=== PATIENT | male | born 1990 | race Caucasian/White ===

== ENCOUNTER 2018-11-20 14:19 | Emergency (ER) | payer OTHER ==
[2018-11-20 15:23] LABS: Amphetamine Screen,Urine Not Detected (NotDetected); Barbiturate Screen,Urine Not Detected (NotDetected); Benzodiazepines Screen,Urine Not Detected (NotDetected); Cocaine Screen,Urine Not Detected (NotDetected); Methadone Screen, Urine Not Detected (NotDetected); Opiate Screen,Urine Not Detected (NotDetected); Oxycodone Screen, Urine Not Detected (NotDetected); Phencyclidine Screen,Urine Not Detected (NotDetected); Tricyclic Antidepressant,Urine Not Detected (NotDetected); Urn Cannabinoid Scrn Detected (NotDetected)
--- NOTE | 2018-11-20 16:46 | ED ---
Psych HPI - General Chief Complaint: Psychiatric Symptoms Stated Complaint: Mental health Time Seen by Provider: 11/20/18 15:01 Source: patient, RN notes reviewed Mode of arrival: ambulatory - History of Present Illness Initial Comments: This is a 20-year-old male history depression who is sent over here from his therapist office because he is suicidal. He apparently has access to home he's been feeling depressed for a long time he states he apparently told his sister because he would kill himself. He denies any drugs or alcohol at this time he has no particular trigger for this event today. MD Complaint: suicidal ideation, feels depressed - Related Data Home Medications Medication Instructions Recorded Confirmed FLUoxetine HCL [PROzac] 80 mg PO DAILY 11/20/18 11/20/18 Allergies Allergy/AdvReac Type Severity Reaction Status Date / Time No Known Allergies Allergy Verified 11/20/18 14:45 Review of Systems ROS Statement: Those systems with pertinent positive or pertinent negative responses have been documented in the HPI. ROS Other: All systems not noted in ROS Statement are negative. Past Medical History Past Medical History: No Reported History History of Any Multi-Drug Resistant Organisms: None Reported Past Surgical History: No Surgical Hx Reported Past Psychological History: ADD/ADHD, Anxiety, Bipolar, Depression, PTSD Smoking Status: Current every day smoker Past Alcohol Use History: Daily Past Drug Use History: Cocaine, Heroin, Marijuana General Exam - General Exam Comments Initial Comments: Is a well-developed well-nourished awake alert oriented times 3 male Limitations: no limitations General appearance: alert, anxious Head exam: Present: atraumatic, normocephalic, normal inspection Eye exam: Present: normal appearance, PERRL, EOMI. Absent: scleral icterus, conjunctival injection, periorbital swelling ENT exam: Present: normal exam, mucous membranes moist Neck exam: Present: normal inspection. Absent: tenderness, meningismus, lymphadenopathy Respiratory exam: Present: normal lung sounds bilaterally. Absent: respiratory distress, wheezes, rales, rhonchi, stridor Cardiovascular Exam: Present: regular rate, normal rhythm, normal heart sounds. Absent: systolic murmur, diastolic murmur, rubs, gallop, clicks GI/Abdominal exam: Present: soft, normal bowel sounds. Absent: distended, tenderness, guarding, rebound, rigid Extremities exam: Present: normal inspection, full ROM, normal capillary refill. Absent: tenderness, pedal edema, joint swelling, calf tenderness Back exam: Present: normal inspection Neurological exam: Present: alert, oriented X3, CN II-XII intact Psychiatric exam: Present: depressed, manic, suicidal ideation, other (The patient is demonstrating histrionic behavior) Skin exam: Present: warm, dry, intact, normal color. Absent: rash Course Vital Signs 11/20/18 14:22 Temperature 97.5 F L Pulse Rate 80 Respiratory 20 Rate Blood Pressure 135/80 O2 Sat by Pulse 99 Oximetry Medical Decision Making - Medical Decision Making Patient was evaluated by psychiatric service he is not a risk currently himself he will be discharged outpatient referral - Lab Data Lab Results 11/20/18 Range/Units 15:00 Urine Opiates Screen Not Detected (NotDetected) Ur Oxycodone Screen Not Detected (NotDetected) Urine Methadone Screen Not Detected (NotDetected) Ur Propoxyphene Screen Not Detected (NotDetected) Ur Barbiturates Screen Not Detected (NotDetected) U Tricyclic Antidepress Not Detected (NotDetected) Ur Phencyclidine Scrn Not Detected (NotDetected) Ur Amphetamines Screen Not Detected (NotDetected) U Methamphetamines Scrn Not Detected (NotDetected) U Benzodiazepines Scrn Not Detected (NotDetected) Urine Cocaine Screen Not Detected (NotDetected) U Marijuana (THC) Screen Detected H (NotDetected) Disposition Clinical Impression: Depression, Adjustment reaction Disposition: HOME SELF-CARE Condition: Good Instructions: Mood Disorders (ED) Is patient prescribed a controlled substance at d/c from ED?: No Referrals: None,Stated [Primary Care Provider] - 1-2 days
[2018-11-20] MEDS ORDERED: NICOTINE 21MG/24HR PATCH TRANSDERM STA (18:10)
[2018-11-20 21:00] VITALS: BP 132/86; PULSE 98; RESP 18; TEMP 97.9
== END 2018-11-20 21:01 | disposition home or self-care (01) ==
LOC: EC 14:19
DX: F32.9 Major depressive disorder, single episode, unspecified (principal); F43.20 Adjustment disorder, unspecified; F41.9 Anxiety disorder, unspecified; F17.200 Nicotine dependence, unspecified, uncomplicated; Z79.899 Other long term (current) drug therapy
CPT/HCPCS: 80306; 99284; S4990

== ENCOUNTER 2019-06-11 12:29 | Inpatient (IN) | payer MEDICAID, OTHER ==
[2019-06-11 13:36] LABS: Amphetamine Screen,Urine Not Detected (NotDetected); Barbiturate Screen,Urine Not Detected (NotDetected); Benzodiazepines Screen,Urine Not Detected (NotDetected); Cocaine Screen,Urine Not Detected (NotDetected); Methadone Screen, Urine Not Detected (NotDetected); Opiate Screen,Urine Not Detected (NotDetected); Oxycodone Screen, Urine Not Detected (NotDetected); Phencyclidine Screen,Urine Not Detected (NotDetected); Tricyclic Antidepressant,Urine Not Detected (NotDetected); Urn Cannabinoid Scrn Detected (NotDetected)
--- NOTE | 2019-06-11 14:16 | ED ---
Psych HPI - General Chief Complaint: Psychiatric Symptoms Stated Complaint: EPS eval Time Seen by Provider: 06/11/19 12:56 Source: patient, RN notes reviewed Mode of arrival: ambulatory Limitations: no limitations - History of Present Illness Initial Comments: 29-year-old male presents emergency Department for psychiatric evaluation. Patient states that he is severely depressed and suicidal no exact plan this time he has had multiple attempts in the past for suicide. Patient states he is see a therapist but moved under joint missed multiple appointments and he states he was not able to get any more appointment. Patient states he does use alcohol occasionally does use marijuana but denies any other drug use. Patient denies any physical complaints patient states that he feels that he needs to be admitted. - Related Data Home Medications Medication Instructions Recorded Confirmed No Known Home Medications 06/11/19 06/11/19 Allergies Allergy/AdvReac Type Severity Reaction Status Date / Time No Known Allergies Allergy Verified 06/11/19 13:18 Review of Systems ROS Statement: Those systems with pertinent positive or pertinent negative responses have been documented in the HPI. ROS Other: All systems not noted in ROS Statement are negative. Past Medical History Past Medical History: No Reported History History of Any Multi-Drug Resistant Organisms: None Reported Past Surgical History: No Surgical Hx Reported Past Psychological History: ADD/ADHD, Anxiety, Bipolar, Depression, PTSD Smoking Status: Current every day smoker Past Alcohol Use History: Occasional Past Drug Use History: None Reported, Cocaine, Heroin, Marijuana General Exam Limitations: no limitations General appearance: alert, in no apparent distress Head exam: Present: atraumatic, normocephalic, normal inspection Eye exam: Present: normal appearance, PERRL, EOMI. Absent: scleral icterus, conjunctival injection, periorbital swelling ENT exam: Present: normal exam, normal oropharynx, mucous membranes moist, TM's normal bilaterally Neck exam: Present: normal inspection, full ROM. Absent: tenderness, meningismus, lymphadenopathy Respiratory exam: Present: normal lung sounds bilaterally. Absent: respiratory distress, wheezes, rales, rhonchi, stridor Cardiovascular Exam: Present: regular rate, normal rhythm, normal heart sounds. Absent: systolic murmur, diastolic murmur, rubs, gallop, clicks GI/Abdominal exam: Present: soft, normal bowel sounds. Absent: distended, tenderness, guarding, rebound, rigid Psychiatric exam: Present: depressed Skin exam: Present: warm, dry, intact, normal color. Absent: rash Course Vital Signs 06/11/19 12:53 Temperature 98.3 F Pulse Rate 90 Respiratory 18 Rate Blood Pressure 130/80 O2 Sat by Pulse 96 Oximetry Medical Decision Making - Medical Decision Making Patient will be admitted for psychiatric evaluation. - Lab Data Lab Results 06/11/19 Range/Units 13:10 Urine Opiates Screen Not Detected (NotDetected) Ur Oxycodone Screen Not Detected (NotDetected) Urine Methadone Screen Not Detected (NotDetected) Ur Propoxyphene Screen Not Detected (NotDetected) Ur Barbiturates Screen Not Detected (NotDetected) U Tricyclic Antidepress Not Detected (NotDetected) Ur Phencyclidine Scrn Not Detected (NotDetected) Ur Amphetamines Screen Not Detected (NotDetected) U Methamphetamines Scrn Not Detected (NotDetected) U Benzodiazepines Scrn Not Detected (NotDetected) Urine Cocaine Screen Not Detected (NotDetected) U Marijuana (THC) Screen Detected H (NotDetected) Disposition Clinical Impression: Depression, Suicidal ideation Disposition: TRANSFER TO PSYCH HOSP/UNIT Referrals: None,Stated [Primary Care Provider] - 1-2 days
[2019-06-11] MEDS ORDERED: MAGNESIUM HYDROXIDE 2,400 MG/10 ML CUP PO PRN (16:35)
[2019-06-11] MEDS ORDERED: MAG HYDROX/AL HYDROX/SIMETH 30 ML CUP PO PRN (16:35)
[2019-06-11] MEDS ORDERED: ACETAMINOPHEN TAB 325 MG TAB PO PRN (16:35)
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
[2019-06-11] MEDS: NICOTINE 21MG/24HR PATCH TRANSDERM SCH (17:45)
[2019-06-11 18:08] VITALS: BMI 23.6
[2019-06-11] MEDS: LORazepam 1 MG TAB PO SCH (20:50)
[2019-06-12 07:40] LABS: Basophils % (A) 0 %; Eosinophils # (A) 0.4 k/uL (0-0.7); Eosinophils % (A) 5 %; HCT 48.4 % (39.0-53.0); HGB 15.3 gm/dL (13.0-17.5); Lymphocytes # (A) 2.3 k/uL (1.0-4.8); Lymphocytes % (A) 33 %; MCH 29.9 pg (25.0-35.0); MCHC 31.6 g/dL (31.0-37.0); MCV 94.6 fL (80.0-100.0); Mean Platelet Volume 7.8; Monocytes # (A) 0.5 k/uL (0-1.0); Monocytes % (A) 7 %; Neutrophils # (A) 3.5 k/uL (1.3-7.7); Neutrophils % (A) 50 %; Platelet Count 222 k/uL (150-450); RBC 5.11 m/uL (4.30-5.90); RDW 14.7 % (11.5-15.5)
[2019-06-12 07:47] LABS: ALT 38 U/L (21-72); AST 23 U/L (17-59); African American GFR (CKD) >90 (>60 ml/min/1.73 sqM); Albumin 3.8 g/dL (3.5-5.0); Alkaline Phosphatase 43 U/L (38-126); Anion Gap 6 mmol/L; Blood Urea Nitrogen 17 mg/dL (9-20); Calcium 9.5 mg/dL (8.4-10.2); Carbon Dioxide 31 mmol/L (22-30); Chloride 105 mmol/L (98-107); Cholesterol 177 mg/dL (<200); Glucose 90 mg/dL (74-99); HDL Cholesterol 39 mg/dL (40-60); LDL Cholesterol,Calculated 110 mg/dL (0-99); Potassium 5.4 mmol/L (3.5-5.1); Sodium 142 mmol/L (137-145); Total Bilirubin 0.4 mg/dL (0.2-1.3); Total Protein 5.9 g/dL (6.3-8.2); Triglycerides 139 mg/dL (<150)
[2019-06-12] MEDS: NICOTINE 21MG/24HR PATCH TRANSDERM SCH (08:16)
[2019-06-12] MEDS: LORazepam 1 MG TAB PO SCH ×2 (08:16→20:56)
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
[2019-06-12 14:25] LABS: Hemoglobin A1C 5.4 % (4.0-6.0)
[2019-06-12] MEDS: DIVALPROEX ER 500 MG TAB.ER.24H PO SCH (20:56)
--- NOTE | 2019-06-13 08:11 | P.PN ---
Progress Note - Text Interval history: The patient is found in the hallway he follows me to an interview room. He indicates his mood is a same as yesterday. He did sleep last night 7-8 hours. Appetite stable. He reports continued symptoms of depression hopeless thoughts with suicidal ideation. He has no questions or concerns regarding the medications. He is endorsing no racing thoughts he describes his energy as being very low. Mental status exam: The patient is alert he has a disheveled appearance hygiene is fair. He is dressed in hospital gowns. Eye contact is appropriate he is seated with his arms crossed. He offers no spontaneous speech she provides brief answers to questions asked. He maintains a bland affect. Although not confrontational he has a direct style in terms of answering questions. He demonstrates no verbal or physical aggressiveness. He demonstrates no involuntary repetitive movements. Endorses continued suicidal thoughts but no homicidal ideation. He endorses no auditory or visual hallucinations or specific delusions. He demonstrates no objective evidence of psychosis. Insight and judgment limited. Impression/plan: Ongoing symptoms of depression, continue medications as written. Continue to evaluate for safety. We will monitor for any hypomanic or manic symptoms. He is encouraged to participate in the milieu. I'll signs reviewed.
[2019-06-13] MEDS: NICOTINE 21MG/24HR PATCH TRANSDERM SCH (08:30)
[2019-06-13] MEDS: FLUoxetine HCL 20 MG CAP PO SCH (08:30)
[2019-06-13] MEDS: LORazepam 1 MG TAB PO SCH ×2 (08:30→21:26)
[2019-06-13 10:00] LABS: African American GFR (CKD) >90 (>60 ml/min/1.73 sqM); Anion Gap 5 mmol/L; Blood Urea Nitrogen 17 mg/dL (9-20); Calcium 9.6 mg/dL (8.4-10.2); Carbon Dioxide 27 mmol/L (22-30); Chloride 105 mmol/L (98-107); Glucose 88 mg/dL (74-99); Potassium 4.7 mmol/L (3.5-5.1); Sodium 137 mmol/L (137-145)
[2019-06-13 17:20] LABS: Appearance,Urine Cloudy (Clear); Bilirubin,Urine Negative (Negative); Blood,Urine Negative (Negative); Budding Yeast,Urine Few /hpf; Color,Urine Yellow; Glucose,Urine (UA) Negative (Negative); Ketones,Urine 1+ (Negative); Leukocyte Esterase,Urine Negative (Negative); Mucus,Urine Rare /hpf; Nitrite,Urine Negative (Negative); PH, Urine 7.5 (5.0-8.0); Protein,Urine Negative (Negative); Specific Gravity,Urine 1.021 (1.001-1.035); Urobilinogen,Urine <2.0 mg/dL (<2.0)
[2019-06-13] MEDS: DIVALPROEX ER 500 MG TAB.ER.24H PO SCH (21:26)
[2019-06-14] MEDS: NICOTINE 21MG/24HR PATCH TRANSDERM SCH (08:18)
[2019-06-14] MEDS: LORazepam 1 MG TAB PO SCH ×2 (08:19→21:15)
[2019-06-14] MEDS: FLUoxetine HCL 20 MG CAP PO SCH (08:19)
--- NOTE | 2019-06-14 10:54 | P.PN ---
Progress Note - Text Interval history: The patient is found in his room he reluctantly gets up and speaks with me in an interview room. He initially states his mood is good. Later in the conversation he states he still is hopeless thoughts and doesn't know what to look forward to. He has not attended groups yet this morning but reports he went to groups yesterday. He has no questions or concerns regarding his psychotropic medication. He states that the Prozac historically he has made him feel happier and is looking for to that again. Appetite stable. Staff report he slept 6 hours last evening. He slept into the morning groups as well. Mental status exam: The patient is alert he has a disheveled appearance hygiene is impaired he is not showered since he's been on the mental health unit. He is dressed in hospital gowns. He seated in a guarded posture arms are crossed. He has a staring eye contact which he does not break. He has no spontaneous speech but will provide brief answers to questions asked. He is endorsing no homicidal ideation. He has some suicidal ideation. He is reporting no auditory or visual hallucinations or any specific delusions. Based on his presentation we will not rule out psychosis at this point. Insight and judgment limited. He demonstrates no verbal or physical aggressiveness. He demonstrates no i nvoluntary repetitive movements. Plan: We will continue the Depakote and Prozac as written. Once the Depakote has reach steady state we will draw a level. He is encouraged to participate in groups we will monitor him for safety. Vital signs reviewed.
[2019-06-14] MEDS: DIVALPROEX ER 500 MG TAB.ER.24H PO SCH (21:15)
[2019-06-15] MEDS: LORazepam 1 MG TAB PO SCH ×2 (08:00→21:53)
[2019-06-15] MEDS: NICOTINE 21MG/24HR PATCH TRANSDERM SCH (08:00)
[2019-06-15] MEDS: FLUoxetine HCL 20 MG CAP PO SCH (08:00)
--- NOTE | 2019-06-15 11:10 | P.PN ---
Progress Note - Text Interval history: The patient's found in his room he follows me to an interview room. He states his mood is fine. Later he states that it's irritated. He states he doesn't want to play kid games in group. We discussed that he had been missing other groups including [employer] and the social work group in the morning which has a different therapeutic content. He has no questions or concerns regarding his medication. He states he feels the medication may be helping him. He reports that he may sign a form to withdraw his voluntary status and we discussed that, answering his questions. He is reporting no pain or dizziness. He states that he slept last night staff recorded he slept at least 6 hours. Appetite stable. He states he's been showering daily. Mental status exam: The patient is alert he is dressed in his own clothing he has a disheveled appearance hygiene is fair. He seated with his arms crossed. He volunteers little spontaneous speech but will answer questions briefly. He maintains a constricted affect. He has a staring eye contact. He reports no suicidal or homicidal ideation intent or plan. He demonstrates no tangential thinking loose associations or flight of ideas. He does not appear hypomanic or manic at this time. Insight and judgment limited. He remains oriented to person place and date. He demonstrates no verbal or physical aggressiveness he demonstrates no involuntary movements. Impression/plan: The patient will continue on his current psychotropic medications. We will obtain a Depakote level once it's reach steady state. He is encouraged to more fully participate in the milieu. Vital signs reviewed they're within normal limits. We will continue monitor him for safety.
[2019-06-15] MEDS: DIVALPROEX ER 500 MG TAB.ER.24H PO SCH (21:53)
[2019-06-16 06:49] VITALS: RESP 16; TEMP 97.9
[2019-06-16] MEDS: LORazepam 1 MG TAB PO SCH ×2 (08:45→20:37)
[2019-06-16] MEDS: NICOTINE 21MG/24HR PATCH TRANSDERM SCH (08:45)
[2019-06-16] MEDS: FLUoxetine HCL 20 MG CAP PO SCH (08:45)
--- NOTE | 2019-06-16 11:05 | P.PN ---
Progress Note - Text Interval history: The patient is found in his room he prefers to speak in his room and did not follow me to an interview room. He states that his mood is fine. He indicates he wants to go home he signed the notice that he was withdrawing his voluntary status. We reviewed that I want to get lab work to obtain his Depakote level. He is selectively attending groups. He reports that his mood is improving he is reporting no acute suicidal ideation. Mental status exam: The patient is alert he is in bed he is covered with a blanket. Eye contact is intermittent. He offers no spontaneous speech but answers questions briefly. He is reporting no acute suicidal or homicidal ideation intent or plan. He is endorsing no auditory or visual hallucinations or any specific delusions. He maintains a constricted affect. He demonstrates no verbal or physical aggressiveness. He demonstrates no tangential thinking loose associations or flight of ideas. He is oriented to person place and date. He has a disheveled appearance hygiene is fair. Plan: The patient has signed a notice to withdraw his voluntary status. He is indicating no acute suicidal ideation which was the reason he presented to the hospital. He reports feeling hopeful that the current psychotropic medications will provide benefit and he states they have already improved his mood. We will obtain a Depakote level and check his liver enzymes in the morning. If he is clinically appropriate we will consider discharging him in the next 1-2 days. He is asked to provide a number to his roommate so that social service manager can confirm he is able to return to the same residence. As always he is encouraged to fully participate in the milieu.
[2019-06-16] MEDS: ZIPRASIDONE 20 MG VIAL IM PRN ×2 (11:07→21:45)
[2019-06-16] MEDS: DIVALPROEX ER 500 MG TAB.ER.24H PO SCH (20:37)
[2019-06-16 20:38] VITALS: BP 133/83; PULSE 88
[2019-06-17] MEDS: NICOTINE 21MG/24HR PATCH TRANSDERM SCH (09:11)
[2019-06-17] MEDS: LORazepam 1 MG TAB PO SCH (09:11)
[2019-06-17] MEDS: FLUoxetine HCL 20 MG CAP PO SCH (09:11)
--- NOTE | 2019-06-17 10:02 | P.DS ---
Providers Date of admission: 06/11/19 16:30 Expected date of discharge: 06/17/19 Attending physician: Andrea Dodd Consults: 06/11/19 16:35 Consult Physician Routine Consulting Provider: Adria Adam Consult Reason/Comments: medical management Do you want consulting provider notified?: Yes Primary care physician: Stated None - Discharge Diagnosis(es) (1) Bipolar 1 disorder, depressed, severe Current Visit: Yes Status: Acute Priority: High (2) Chronic post-traumatic stress disorder (PTSD) Current Visit: Yes Status: Acute Priority: Medium (3) Cannabis use disorder, mild, abuse Current Visit: Yes Status: Acute Priority: Medium Hospital Course: Brief summary of admission note: This patient is a 29-year-old single male who was admitted to the mental health unit through the emergency room with suicidal ideation. The patient presented stating he was depressed and had thoughts of ending his life. He described hopelessness thinking. He had been contemplating cutting his wrists. Sleep and appetite have been impaired. Energy was low. He endorsed a history of manic episodes. For full details please refer to my psychiatric evaluation dated 06/12/2019. Summary of hospital course: The patient was admitted to the mental health unit voluntarily. We reviewed his presenting symptoms and treatment options. We discussed initiating a mood stabilizer along with his previous antidepressant and he was agreeable. He had been on both Prozac and Depakote in the past successfully. We reviewed possible side effects and benefits of each medication and his questions were answered. He complied with the medication on the mental health unit and reported no side effects. The patient selectively attended groups and approximate attended to a day. He otherwise stated his room. His appetite improved he was eating normally he is been sleeping throughout the night. He has been showering. Throughout the stay some personality disorder traits have become more apparent. He demonstrates some antisocial traits and how he interacts with some staff members and how he attempts to manipulate other patients. He has noted a resolution of any suicidal ideation. He is observed on the unit interacting with peers laughing he will engage in recreational activity, there is no evidence of anhedonia at this time. He was seen by internal medicine for routine history and physical exam. He indicates he wants nobody to, for support meeting. He is trying to reach one of his roommates so that we are able to confirm he can return to his residence. If we are not successful in that endeavor we will give him information for halfway placement which would be available upon discharge. The patient did sign a notice to withdraw his voluntary status the other day. We have drawn his Depakote level and we are awaiting the results. At this time there is no imminent safety risk and we do not need to involuntarily continue his hospitalization. Based on his current clinical status and reported improvement of symptoms we do not need to petition and clinically certify him to proceed with court ordered hospitalization. Mental status exam: The patient is alert he is dressed in his own clothing hygiene adequate he is mildly disheveled. Eye contact is adequate speech is more spontaneous. He describes his mood as being good. Affect is brighter. He is reporting no suicidal ideation intent or plan. He is reporting no homicidal ideation intent or plan. He states he no longer feels hopeless. He plans to return to his residence with his roommates. 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 He identifies other recreational activities that he will engage in. He demonstrates no tangential thinking loose associations or flight of ideas, he does not appear hypomanic or manic. He reports no auditory or visual hallucinations or any specific delusions. There is no observed evidence of psychosis. He demonstrates no verbal or physical aggressiveness. He demonstrates no psychomotor agitation. Insight and judgment have improved. He remains oriented to person place and date. Impressions 1. Bipolar 1 disorder most recent depressed severe, chronic posttraumatic stress disorder, cannabis use disorder, rule out history of benzodiazepine use disorder Plan: The patient will be discharged mental health unit today. He will continue on Depakote ER 1000 mg at bedtime, Prozac 20 mg daily. Social work will arrange his outpatient mental health follow-up. He is encouraged to comply with those appointments and his medication. He does not wish to attend inpatient chemical dependency treatment for his use of cannabis. We discussed having him discontinue cannabis and he is encouraged not to use any alcohol or illicit drugs. We discussed that those substances can precipitate mood symptoms and ultimately elevate his safety risk. He has signed a form rescinding his voluntary status. At this time he is reporting a complete resolution of any suicidal ideation. He is demonstrating he is capable of completing his activities of daily living. There is no observed evidence of anhedonia. He is not currently hypomanic manic or psychotic. He spontaneously describes future oriented thinking. Because of his improvement here in the mental health unit we do not feel that he is at any further imminent safety risk and does not require continued involuntary hospitalization. He is instructed to return to the hospital if any acute safety concerns. Patient Condition at Discharge: Stable Plan - Discharge Summary Discharge Rx Participant: No New Discharge Prescriptions: New Divalproex ER [Depakote ER] 1,000 mg PO HS #60 tab.er.24h Nicotine 21Mg/24Hr Patch [Habitrol] 1 patch TRANSDERM DAILY #7 patch FLUoxetine HCL [PROzac] 20 mg PO DAILY #30 cap Discharge Medication List Divalproex ER [Depakote ER] 1,000 mg PO HS #60 tab.er.24h 06/17/19 [Rx] FLUoxetine HCL [PROzac] 20 mg PO DAILY #30 cap 06/17/19 [Rx] Nicotine 21Mg/24Hr Patch [Habitrol] 1 patch TRANSDERM DAILY #7 patch 06/17/19 [Rx] Follow up Appointment(s)/Referral(s): [facility] [Outside] - 06/21/19 9:00 am (Intake w/ [facility]) None,Stated [Primary Care Provider] - 1-2 days Patient Instructions/Handouts: Suicide Prevention (DC) Activity/Diet/Wound Care/Special Instructions: Activity and diet as tolerated. Avoid the use of street drugs and alcohol. Take all medications as prescribed. When you are in need of refills on your medications please contact your medical provider and/or outpatient psychiatrist to have this done. Please go to scheduled outpatient appointment for aftercare treatment. If symptoms return or become worse, call the crisis line at and/or go to the nearest emergency room for evaluation.
== END 2019-06-17 11:15 | disposition home or self-care (01) | DRG 885 ==
LOC: EC 12:29 → 3MHU 16:30
PROVIDERS: ADMIT Psychiatry & Neurology Psychiatry; ATTEND Psychiatry & Neurology Psychiatry
DX: F31.4 Bipolar disorder, current episode depressed, severe, without psychotic features (principal); R45.851 Suicidal ideations; F43.12 Post-traumatic stress disorder, chronic; F12.10 Cannabis abuse, uncomplicated; F90.9 Attention-deficit hyperactivity disorder, unspecified type; F41.9 Anxiety disorder, unspecified; F60.9 Personality disorder, unspecified; F60.2 Antisocial personality disorder; F13.11 Sedative, hypnotic or anxiolytic abuse, in remission; F17.210 Nicotine dependence, cigarettes, uncomplicated; Z71.6 Tobacco abuse counseling; Z62.810 Personal history of physical and sexual abuse in childhood; Z56.0 Unemployment, unspecified
CPT/HCPCS: 80048; 80053; 80061; 80164; 80306; 81001; 82075; 83036; 84443; 84450; 84460; 85025; 99285

== ENCOUNTER 2021-01-08 02:16 | Inpatient (IN) | payer OTHER ==
[2021-01-08] MEDS ORDERED: NALOXONE 0.4 MG/ML 1 ML VIAL SQ STA ×2 (02:17→02:47)
[2021-01-08] MEDS ORDERED: NALOXONE 0.4 MG/ML 1 ML VIAL IVP STA ×2 (02:20→03:30)
[2021-01-08] MEDS ORDERED: LORazepam 2 MG/ML INJ IV STA ×2 (02:21→02:27)
[2021-01-08] MEDS ORDERED: ONDANSETRON 4 MG/2 ML VIAL IVP STA (02:21)
--- NOTE | 2021-01-08 02:35 | ED ---
Overdose HPI - General Chief Complaint: Overdose Stated Complaint: Overdose Time Seen by Provider: 01/08/21 02:22 Source: RN/MD, RN notes reviewed, old records reviewed Mode of arrival: wheelchair Limitations: altered mental status - History of Present Illness Initial Comments: This is a unknown drop-off for alleged overdose. Patient presents apneic, pale beginning to turn cyanotic. Unable to give history no history is provided. Patient unable to give history himself Complaint: accidental overdose -: unknown How Overdose Was Discovered: family/friend present at time Context: Intentional Overdose: drug/ETOH problems Treatments Prior to Arrival: none - Related Data Allergies Allergy/AdvReac Type Severity Reaction Status Date / Time Unable to Assess Allergy Verified 01/08/21 02:33 Review of Systems ROS Statement: Those systems with pertinent positive or pertinent negative responses have been documented in the HPI. ROS Other: All systems not noted in ROS Statement are negative. General Exam - General Exam Comments Initial Comments: Patient is significantly cold cyanotic on presentation Limitations: altered mental status, physical limitation General appearance: obtunded, in distress Head exam: Present: atraumatic, normocephalic, normal inspection Eye exam: Present: normal appearance, PERRL, EOMI. Absent: scleral icterus, conjunctival injection, periorbital swelling ENT exam: Present: normal exam, mucous membranes moist Neck exam: Present: normal inspection. Absent: tenderness, meningismus, lymphadenopathy Respiratory exam: Present: normal lung sounds bilaterally. Absent: respiratory distress, wheezes, rales, rhonchi, stridor Cardiovascular Exam: Present: regular rate, normal rhythm, normal heart sounds. Absent: systolic murmur, diastolic murmur, rubs, gallop, clicks GI/Abdominal exam: Present: soft, normal bowel sounds. Absent: distended, tenderness, guarding, rebound, rigid Extremities exam: Present: normal inspection, full ROM, normal capillary refill. Absent: tenderness, pedal edema, joint swelling, calf tenderness Back exam: Present: normal inspection Neurological exam: Present: alert, oriented X3, CN II-XII intact Psychiatric exam: Present: normal affect, normal mood Skin exam: Present: warm, dry, intact, normal color. Absent: rash Course Vital Signs 01/08/21 01/08/21 01/08/21 02:17 02:21 03:00 Pulse Rate 108 H Respiratory 0 L 8 L 12 Rate Blood Pressure 102/66 O2 Sat by Pulse 93 L Oximetry 01/08/21 01/08/21 03:55 04:06 Pulse Rate Respiratory 22 22 Rate Blood Pressure O2 Sat by Pulse Oximetry - Reevaluation(s) Reevaluation #1: 01/08/21 02:38 Medical record is reviewed Reevaluation #2: 01/08/21 02:38 Patient is in severe distress on arrival, patient is brought back all playing patient has he is currently apneic. Patient did experience and improvement in color, IV was secured and patient was given Narcan, patient woke up significantly agitated with nausea and severe diaphoresis. - Consultations Consultation #1: Spoke with both ICU and sound regarding admission there agreed Medical Decision Making - Medical Decision Making 30 male to the ER for evaluation patient severe distress patient presents today in respiratory distress from overdose. Polysubstance overdose found later. Patient needing Narcan drip secondary to significant amount of overdose. Patient also found of coronavirus. Oxygen is maintaining with supplemental O2 patient again is on Narcan drip and will admit the ICU for continued monitoring - Lab Data Result diagrams: 01/08/21 03:45 01/08/21 03:45 Lab Results 01/08/21 01/08/21 01/08/21 Range/Units 02:52 03:33 03:45 WBC 10.9 H (3.8-10.6) k/uL RBC 4.87 (4.30-5.90) m/uL Hgb 15.0 (13.0-17.5) gm/dL Hct 43.9 (39.0-53.0) % MCV 90.2 (80.0-100.0) fL MCH 30.8 (25.0-35.0) pg MCHC 34.1 (31.0-37.0) g/dL RDW 12.8 (11.5-15.5) % Plt Count 215 (150-450) k/uL MPV 7.4 Neutrophils % 83 % Lymphocytes % 6 % Monocytes % 9 % Eosinophils % 1 % Basophils % 0 % Neutrophils # 9.1 H (1.3-7.7) k/uL Lymphocytes # 0.6 L (1.0-4.8) k/uL Monocytes # 0.9 (0-1.0) k/uL Eosinophils # 0.1 (0-0.7) k/uL Basophils # 0.0 (0-0.2) k/uL PT (9.0-12.0) sec INR (<1.2) APTT (22.0-30.0) sec Sodium (137-145) mmol/L Potassium (3.5-5.1) mmol/L Chloride (98-107) mmol/L Carbon Dioxide (22-30) mmol/L Anion Gap mmol/L BUN (9-20) mg/dL Creatinine (0.66-1.25) mg/dL Est GFR (CKD-EPI)AfAm (>60 ml/min/1.73 sqM) Est GFR (CKD-EPI)NonAf (>60 ml/min/1.73 sqM) Glucose (74-99) mg/dL POC Glucose (mg/dL) 179 H (75-99) mg/dL POC Glu Stamping Press Operator ID Pilar Frost Plasma Lactic Acid Donald (0.7-2.0) mmol/L Calcium (8.4-10.2) mg/dL Total Bilirubin (0.2-1.3) mg/dL AST (17-59) U/L ALT (4-49) U/L Alkaline Phosphatase (38-126) U/L Ammonia (<30) umol/L Creatine Kinase (55-170) U/L CK-MB (CK-2) (0.0-2.4) ng/mL Troponin I (0.000-0.034) ng/mL Total Protein (6.3-8.2) g/dL Albumin (3.5-5.0) g/dL Lipase (23-300) U/L Salicylates mg/dL Urine Opiates Screen Detected H (NotDetected) Ur Oxycodone Screen Not Detected (NotDetected) Urine Methadone Screen Not Detected (NotDetected) Ur Propoxyphene Screen Not Detected (NotDetected) Acetaminophen ug/mL Ur Barbiturates Screen Not Detected (NotDetected) Phenytoin ug/mL Valproic Acid ug/mL Carbamazepine ug/mL U Tricyclic Antidepress Not Detected (NotDetected) Ur Phencyclidine Scrn Not Detected (NotDetected) Ur Amphetamines Screen Detected H (NotDetected) U Methamphetamines Scrn Detected H (NotDetected) U Benzodiazepines Scrn Not Detected (NotDetected) [place] mmol/L Urine Cocaine Screen Detected H (NotDetected) U Marijuana (THC) Screen Detected H (NotDetected) Serum Alcohol mg/dL Coronavirus (PCR) (Not Detectd) 01/08/21 01/08/21 01/08/21 Range/Units 03:45 03:45 03:45 WBC (3.8-10.6) k/uL RBC (4.30-5.90) m/uL Hgb (13.0-17.5) gm/dL Hct (39.0-53.0) % MCV (80.0-100.0) fL MCH (25.0-35.0) pg MCHC (31.0-37.0) g/dL RDW (11.5-15.5) % Plt Count (150-450) k/uL MPV Neutrophils % % Lymphocytes % % Monocytes % % Eosinophils % % Basophils % % Neutrophils # (1.3-7.7) k/uL Lymphocytes # (1.0-4.8) k/uL Monocytes # (0-1.0) k/uL Eosinophils # (0-0.7) k/uL Basophils # (0-0.2) k/uL PT 10.6 (9.0-12.0) sec INR 1.0 (<1.2) APTT 22.6 (22.0-30.0) sec Sodium 136 L (137-145) mmol/L Potassium 4.5 (3.5-5.1) mmol/L Chloride 99 (98-107) mmol/L Carbon Dioxide 24 (22-30) mmol/L Anion Gap 13 mmol/L BUN 29 H (9-20) mg/dL Creatinine 0.97 (0.66-1.25) mg/dL Est GFR (CKD-EPI)AfAm >90 (>60 ml/min/1.73 sqM) Est GFR (CKD-EPI)NonAf >90 (>60 ml/min/1.73 sqM) Glucose 147 H (74-99) mg/dL POC Glucose (mg/dL) (75-99) mg/dL POC Glu Stamping Press Operator ID Plasma Lactic Acid Donald 1.9 (0.7-2.0) mmol/L Calcium 9.7 (8.4-10.2) mg/dL Total Bilirubin 0.8 (0.2-1.3) mg/dL AST 43 (17-59) U/L ALT 51 H (4-49) U/L Alkaline Phosphatase 58 (38-126) U/L Ammonia 48 H (<30) umol/L Creatine Kinase 411 H (55-170) U/L CK-MB (CK-2) (0.0-2.4) ng/mL Troponin I (0.000-0.034) ng/mL Total Protein 7.3 (6.3-8.2) g/dL Albumin 4.7 (3.5-5.0) g/dL Lipase 39 (23-300) U/L Salicylates <1.0 mg/dL Urine Opiates Screen (NotDetected) Ur Oxycodone Screen (NotDetected) Urine Methadone Screen (NotDetected) Ur Propoxyphene Screen (NotDetected) Acetaminophen <10.0 ug/mL Ur Barbiturates Screen (NotDetected) Phenytoin <3.0 ug/mL Valproic Acid 22.3 ug/mL Carbamazepine <3.0 ug/mL U Tricyclic Antidepress (NotDetected) Ur Phencyclidine Scrn (NotDetected) Ur Amphetamines Screen (NotDetected) U Methamphetamines Scrn (NotDetected) U Benzodiazepines Scrn (NotDetected) [place] <0.2 mmol/L Urine Cocaine Screen (NotDetected) U Marijuana (THC) Screen (NotDetected) Serum Alcohol <10 mg/dL Coronavirus (PCR) (Not Detectd) 01/08/21 01/08/21 Range/Units 03:45 03:45 WBC (3.8-10.6) k/uL RBC (4.30-5.90) m/uL Hgb (13.0-17.5) gm/dL Hct (39.0-53.0) % MCV (80.0-100.0) fL MCH (25.0-35.0) pg MCHC (31.0-37.0) g/dL RDW (11.5-15.5) % Plt Count (150-450) k/uL MPV Neutrophils % % Lymphocytes % % Monocytes % % Eosinophils % % Basophils % % Neutrophils # (1.3-7.7) k/uL Lymphocytes # (1.0-4.8) k/uL Monocytes # (0-1.0) k/uL Eosinophils # (0-0.7) k/uL Basophils # (0-0.2) k/uL PT (9.0-12.0) sec INR (<1.2) APTT (22.0-30.0) sec Sodium (137-145) mmol/L Potassium (3.5-5.1) mmol/L Chloride (98-107) mmol/L Carbon Dioxide (22-30) mmol/L Anion Gap mmol/L BUN (9-20) mg/dL Creatinine (0.66-1.25) mg/dL Est GFR (CKD-EPI)AfAm (>60 ml/min/1.73 sqM) Est GFR (CKD-EPI)NonAf (>60 ml/min/1.73 sqM) Glucose (74-99) mg/dL POC Glucose (mg/dL) (75-99) mg/dL POC Glu Stamping Press Operator ID Plasma Lactic Acid Donald (0.7-2.0) mmol/L Calcium (8.4-10.2) mg/dL Total Bilirubin (0.2-1.3) mg/dL AST (17-59) U/L ALT (4-49) U/L Alkaline Phosphatase (38-126) U/L Ammonia (<30) umol/L Creatine Kinase (55-170) U/L CK-MB (CK-2) 3.9 H (0.0-2.4) ng/mL Troponin I <0.012 (0.000-0.034) ng/mL Total Protein (6.3-8.2) g/dL Albumin (3.5-5.0) g/dL Lipase (23-300) U/L Salicylates mg/dL Urine Opiates Screen (NotDetected) Ur Oxycodone Screen (NotDetected) Urine Methadone Screen (NotDetected) Ur Propoxyphene Screen (NotDetected) Acetaminophen ug/mL Ur Barbiturates Screen (NotDetected) Phenytoin ug/mL Valproic Acid ug/mL Carbamazepine ug/mL U Tricyclic Antidepress (NotDetected) Ur Phencyclidine Scrn (NotDetected) Ur Amphetamines Screen (NotDetected) U Methamphetamines Scrn (NotDetected) U Benzodiazepines Scrn (NotDetected) [place] mmol/L Urine Cocaine Screen (NotDetected) U Marijuana (THC) Screen (NotDetected) Serum Alcohol mg/dL Coronavirus (PCR) Detected A (Not Detectd) - EKG Data -: EKG Interpreted by Me (EKG is sinus rhythm of 90 NC 1:30 QRS 92 QTC 479) - Radiology Data Radiology results: report reviewed (CT brain negative for acute disease chest x- ray perihilar infiltrate), image reviewed Critical Care Time Critical Care Time: Yes Total Critical Care Time: 31 Disposition Clinical Impression: Accidental drug overdose, Apnea, Cyanosis, Drug overdose, Poisoning by opiates and related narcotics, other, Coronavirus infection Disposition: ADMITTED IP TO THIS [facility] Condition: Critical Is patient prescribed a controlled substance at d/c from ED?: No Referrals: None,Stated [Primary Care Provider] - 1-2 days
[2021-01-08] MEDS ORDERED: NALOXONE 0.4 MG/ML 10 ML VIAL IVP STA ×2 (02:51)
[2021-01-08 02:55] LABS: Glucose,Whole Blood 179 mg/dL (75-99)
[2021-01-08] MEDS ORDERED: SODIUM CHLORIDE 0.9% 1,000 ML IV STA (03:06)
--- NOTE | 2021-01-08 03:34 | CT ---
EXAM: CT Head Without Intravenous Contrast CLINICAL HISTORY: ITS.REASON CT Reason: sob TECHNIQUE: Axial computed tomography images of the head/brain without intravenous contrast. CTDI is 49.27 mGy and DLP is 1078.4 mGy-cm. This CT exam was performed using one or more of the following dose reduction techniques: automated exposure control, adjustment of the mA and/or kV according to patient size, and/or use of iterative reconstruction technique. COMPARISON: No relevant prior studies available. FINDINGS: Brain: No acute infarct, hemorrhage, mass or edema. Ventricles: Unremarkable. No ventriculomegaly. Bones/joints: Unremarkable. No acute calvarial fracture. Soft tissues: Unremarkable. Sinuses: Mild mucosal thickening the paranasal sinuses. Mastoid air cells: Unremarkable as visualized. IMPRESSION: No acute infarct, hemorrhage, mass or edema.
--- NOTE | 2021-01-08 03:38 | XR ---
EXAM: XR Chest, 1 View CLINICAL HISTORY: ITS.REASON XR Reason: sob TECHNIQUE: Frontal view of the chest. COMPARISON: No relevant prior studies available. FINDINGS: Lungs: Question perihilar opacities which may be secondary to atelectasis from low lung volumes. An infectious process is not excluded. Pleural space: Unremarkable. Heart: Unremarkable. Mediastinum: Unremarkable. Bones/joints: Unremarkable. IMPRESSION: Question perihilar opacities which may be secondary to atelectasis from low lung volumes. An infectious process is not excluded.
[2021-01-08 03:57] LABS: Basophils % (A) 0 %; Eosinophils # (A) 0.1 k/uL (0-0.7); Eosinophils % (A) 1 %; HCT 43.9 % (39.0-53.0); Lymphocytes # (A) 0.6 k/uL (1.0-4.8); Lymphocytes % (A) 6 %; MCH 30.8 pg (25.0-35.0); MCHC 34.1 g/dL (31.0-37.0); MCV 90.2 fL (80.0-100.0); Mean Platelet Volume 7.4; Monocytes # (A) 0.9 k/uL (0-1.0); Monocytes % (A) 9 %; Neutrophils # (A) 9.1 k/uL (1.3-7.7); Neutrophils % (A) 83 %; Platelet Count 215 k/uL (150-450); RBC 4.87 m/uL (4.30-5.90); RDW 12.8 % (11.5-15.5); WBC 10.9 k/uL (3.8-10.6)
[2021-01-08 04:06] LABS: Amphetamine Screen,Urine Detected (NotDetected); Barbiturate Screen,Urine Not Detected (NotDetected); Benzodiazepines Screen,Urine Not Detected (NotDetected); Cocaine Screen,Urine Detected (NotDetected); Methadone Screen, Urine Not Detected (NotDetected); Opiate Screen,Urine Detected (NotDetected); Oxycodone Screen, Urine Not Detected (NotDetected); Phencyclidine Screen,Urine Not Detected (NotDetected); Tricyclic Antidepressant,Urine Not Detected (NotDetected); Urn Cannabinoid Scrn Detected (NotDetected)
[2021-01-08] MEDS: NALOXONE (MDV) 2 MG in SODIUM CHLORIDE 0.9% 250 ML IV SCH ×2 (04:06→08:42)
[2021-01-08 04:09] LABS: AST 43 U/L (17-59); African American GFR (CKD) >90 (>60 ml/min/1.73 sqM); Albumin 4.7 g/dL (3.5-5.0); Alkaline Phosphatase 58 U/L (38-126); Anion Gap 13 mmol/L; Blood Urea Nitrogen 29 mg/dL (9-20); Carbamazepine (Tegretol) <3.0 ug/mL; Carbon Dioxide 24 mmol/L (22-30); Chloride 99 mmol/L (98-107); Lactic Acid, Venous 1.9 mmol/L (0.7-2.0); Non-African American GFR(CKD) >90 (>60 ml/min/1.73 sqM); Phenytoin (Dilantin) <3.0 ug/mL; Potassium 4.5 mmol/L (3.5-5.1); Sodium 136 mmol/L (137-145); Total Bilirubin 0.8 mg/dL (0.2-1.3); Total Protein 7.3 g/dL (6.3-8.2)
[2021-01-08 04:10] LABS: Partial Thromboplastin Time 22.6 sec (22.0-30.0); Prothrombin Time 10.6 sec (9.0-12.0)
[2021-01-08 04:13] LABS: Valproic Acid (Depakene) 22.3 ug/mL
[2021-01-08 04:15] LABS: ALT 51 U/L (4-49); Acetaminophen <10.0 ug/mL; Alcohol <10 mg/dL; Calcium 9.7 mg/dL (8.4-10.2); Creatine Kinase 411 U/L (55-170); Glucose 147 mg/dL (74-99); Lipase 39 U/L (23-300); Lithium <0.2 mmol/L; Salicylate <1.0 mg/dL
[2021-01-08] MEDS ORDERED: NALOXONE 0.4 MG/ML 1 ML VIAL IV PRN (04:26)
[2021-01-08 04:30] LABS: Creatine Kinase MB 3.9 ng/mL (0.0-2.4); Troponin I <0.012 ng/mL (0.000-0.034)
[2021-01-08 04:45] LABS: C Reactive Protein 19.9 mg/L (<10.0)
--- NOTE | 2021-01-08 05:08 | P.HPIM ---
History of Present Illness H&P Date: 01/08/21 Patient is a 30-year-old male with a PMH of polysubstance abuse who was brought in via EMS after being found unresponsive. The patient was given multiple doses and was subsequently started on the narcan infusion with improvements in his mentation in the emergency room. the patient would arouse with significant physical stimuli but was otherwise not answering any questions or following commands. In the emergency room, CT head was unremarkable, with chest x-ray suspicious for possible infectious process and EKG showing sinus rhythm at [address]/T-wave changes noted as reviewed by me. Urine toxicology was positive for amphetamines, methamphetamine, cocaine, opiates, and marijuana. Patient was also positive for coronavirus. Review of Systems ROS unobtainable: due to mental status Medications and Allergies Allergies Allergy/AdvReac Type Severity Reaction Status Date / Time Unable to Assess Allergy Verified 01/08/21 02:33 Physical Exam Vitals: Vital Signs Pulse Resp BP Pulse Ox 01/08/21 04:06 22 01/08/21 03:55 22 01/08/21 03:00 108 H 12 102/66 93 L 01/08/21 02:21 8 L 01/08/21 02:17 0 L Intake and Output 01/07/21 01/07/21 01/08/21 14:59 22:59 06:59 Other: Weight 79.379 kg General: Disheveled male, no distress, appears at stated age, overweight Derm: no unusual rashes/lesions no unusual ecchymoses, warm, dry Head: atraumatic, normocephalic, symmetric Eyes: anicteric sclera, pupils equal round reactive to light ENT: Nose and ears atraumatic Neck: No thyromegaly, no cervical lymphadenopathy, trachea midline, supple Mouth: no lip lesion Cardiovascular: S1S2 reg, no murmur, positive posterior tibial pulse bilateral, no edema, capillary refill less than 2 seconds Lungs: CTA bilateral, no rhonchi, no rales , no accessory muscle use Abdominal: soft, nontender to palpation, no guarding, no appreciable organomegaly, normal bowel sounds Ext: no gross muscle atrophy, patient not following commands thereby difficult to assess Neuro: Not following commands though moving all extremities with no gross focal deficits noted Psych: Opens eyes and grunts with sternal rub, not answering questions or following commands Results CBC & Chem 7: 01/08/21 03:45 01/08/21 03:45 Labs: Abnormal Lab Results - Last 24 Hours (Table) 01/08/21 01/08/21 01/08/21 Range/Units 02:52 03:33 03:45 WBC 10.9 H (3.8-10.6) k/uL Neutrophils # 9.1 H (1.3-7.7) k/uL Lymphocytes # 0.6 L (1.0-4.8) k/uL Sodium (137-145) mmol/L BUN (9-20) mg/dL Glucose (74-99) mg/dL POC Glucose (mg/dL) 179 H (75-99) mg/dL ALT (4-49) U/L Ammonia (<30) umol/L Lactate Dehydrogenase (313-618) U/L Creatine Kinase (55-170) U/L CK-MB (CK-2) (0.0-2.4) ng/mL C-Reactive Protein (<10.0) mg/L Urine Opiates Screen Detected H (NotDetected) Ur Amphetamines Screen Detected H (NotDetected) U Methamphetamines Scrn Detected H (NotDetected) Urine Cocaine Screen Detected H (NotDetected) U Marijuana (THC) Screen Detected H (NotDetected) Coronavirus (PCR) (Not Detectd) 01/08/21 01/08/21 01/08/21 Range/Units 03:45 03:45 03:45 WBC (3.8-10.6) k/uL Neutrophils # (1.3-7.7) k/uL Lymphocytes # (1.0-4.8) k/uL Sodium 136 L (137-145) mmol/L BUN 29 H (9-20) mg/dL Glucose 147 H (74-99) mg/dL POC Glucose (mg/dL) (75-99) mg/dL ALT 51 H (4-49) U/L Ammonia 48 H (<30) umol/L Lactate Dehydrogenase (313-618) U/L Creatine Kinase 411 H (55-170) U/L CK-MB (CK-2) 3.9 H (0.0-2.4) ng/mL C-Reactive Protein (<10.0) mg/L Urine Opiates Screen (NotDetected) Ur Amphetamines Screen (NotDetected) U Methamphetamines Scrn (NotDetected) Urine Cocaine Screen (NotDetected) U Marijuana (THC) Screen (NotDetected) Coronavirus (PCR) (Not Detectd) 01/08/21 01/08/21 Range/Units 03:45 03:45 WBC (3.8-10.6) k/uL Neutrophils # (1.3-7.7) k/uL Lymphocytes # (1.0-4.8) k/uL Sodium (137-145) mmol/L BUN (9-20) mg/dL Glucose (74-99) mg/dL POC Glucose (mg/dL) (75-99) mg/dL ALT (4-49) U/L Ammonia (<30) umol/L Lactate Dehydrogenase 761 H (313-618) U/L Creatine Kinase (55-170) U/L CK-MB (CK-2) (0.0-2.4) ng/mL C-Reactive Protein 19.9 H (<10.0) mg/L Urine Opiates Screen (NotDetected) Ur Amphetamines Screen (NotDetected) U Methamphetamines Scrn (NotDetected) Urine Cocaine Screen (NotDetected) U Marijuana (THC) Screen (NotDetected) Coronavirus (PCR) Detected A (Not Detectd) Assessment and Plan Plan: Polysubstance abuse with suspected overdose -Continue with Narcan infusion for now -Admit patient to medical ICU -Monitor closely for signs of withdrawal COVID 19 infection -Monitor inflammatory markers -Pulm consult -Supplemental oxygen DVT prophylaxis -Lovenox The patient is admitted with an anticipated greater than 2 midnight stay for evaluation of AMS CODE STATUS: Full COde Discussed with: RN Anticipated discharge date: 2-[address]: Home A total of 35 minutes was spent on the care of this complex patient more than 50% of the time was spent in counseling and care coordination.
[2021-01-08] MEDS ORDERED: SODIUM CHLORIDE 0.9% 1,000 ML IV SCH (05:15)
[2021-01-08] MEDS ORDERED: ENOXAPARIN 40 MG/0.4 ML SYRINGE SQ SCH (09:00)
[2021-01-08 09:39] LABS: Glucose,Whole Blood 94 mg/dL (75-99)
[2021-01-08 11:11] VITALS: BP 121/76; PULSE 109; RESP 8; TEMP 97.2
--- NOTE | 2021-01-08 11:41 | P.PN ---
Progress Note - Text Progress Note Date: 01/08/21 Patient signed out AMA this am. I was not able to see him. Not able to do a discharge summary.
== END 2021-01-08 10:30 | disposition left against medical advice (07) | DRG 917 ==
LOC: EDBD → EC 02:16 → MERGE 04:26 → 2SICU 04:26
PROVIDERS: ADMIT Internal Medicine; ATTEND Internal Medicine
DX: T43.621A Poisoning by amphetamines, accidental (unintentional), initial encounter (principal); U07.1 COVID-19; T40.5X1A Poisoning by cocaine, accidental (unintentional), initial encounter; T40.7X1A Poisoning by cannabis (derivatives), accidental (unintentional), initial encounter; F19.10 Other psychoactive substance abuse, uncomplicated; E66.3 Overweight; R06.03 Acute respiratory distress; Z53.29 Procedure and treatment not carried out because of patient's decision for other reasons
CPT/HCPCS: 36415; 70450; 71045; 80053; 80143; 80156; 80164; 80165; 80178; 80179; 80185; 80306; 80320; 82140; 82550; 82553; 83605; 83615; 83690; 84484; 85025; 85610; 85730; 86140; 87040; 87635; 93005; 96374; 96375; 96376; 99291

== ENCOUNTER 2022-04-23 04:54 | Emergency (ER) | payer OTHER ==
[2022-04-23 05:00] VITALS: BP 150/102; PULSE 93; RESP 18; TEMP 98
[2022-04-23] MEDS ORDERED: LORazepam 1 MG TAB PO STA (05:17)
--- NOTE | 2022-04-23 05:17 | ED ---
Psych HPI - General Chief Complaint: Psychiatric Symptoms Stated Complaint: Mental Health Time Seen by Provider: 04/23/22 05:16 Source: patient, RN notes reviewed, old records reviewed Mode of arrival: ambulatory - History of Present Illness Initial Comments: This is a 32-year-old male for appropriate action. Patient states he needs to be seen by psychiatry. Patient denies being homicidal or suicidal and states he needs to go to [facility]. Complaint: altered mental status -: unknown Associated Psychiatric Symptoms: racing thoughts, auditory hallucinations, visual hallucinations, delusions History of same: Yes Quality: constant Improves With: none Worsens With: drug use Context: recent drug abuse, significant life stressor Associated Symptoms: confusion Treatments Prior to Arrival: placed on mental health hold - Related Data Home Medications Medication Instructions Recorded Confirmed Unable To Assess [Unable to Assess] 01/08/21 01/08/21 Previous Rx's Medication Instructions Recorded Divalproex ER [Depakote ER] 1,000 mg PO HS #60 tab.er.24h 06/17/19 FLUoxetine HCL [PROzac] 20 mg PO DAILY #30 cap 06/17/19 Nicotine 21Mg/24Hr Patch [Habitrol] 1 patch TRANSDERM DAILY #7 patch 06/17/19 Allergies Allergy/AdvReac Type Severity Reaction Status Date / Time No Known Allergies Allergy Verified 04/23/22 05:01 Review of Systems ROS Statement: Those systems with pertinent positive or pertinent negative responses have been documented in the HPI. ROS Other: All systems not noted in ROS Statement are negative. Past Medical History Past Medical History: No Reported History Additional Past Medical History / Comment(s): Occasional "extra beat". History of Any Multi-Drug Resistant Organisms: None Reported Past Surgical History: No Surgical Hx Reported Additional Past Surgical History / Comment(s): LFA intentional cut with surgical repair. Past Anesthesia/Blood Transfusion Reactions: No Reported Reaction Past Psychological History: ADD/ADHD, Anxiety, Bipolar, Depression, PTSD Smoking Status: Current every day smoker Past Alcohol Use History: Occasional Past Drug Use History: Cocaine, Heroin, Marijuana, Methamphetamine, None Reported - Past Family History Father Family Medical History: No Reported History, Renal Disease Additional Family Medical History / Comment(s): Father has heart valve problem. Mother Additional Family Medical History / Comment(s): Mother has psychological issues. General Exam Limitations: altered mental status General appearance: alert, appears intoxicated, anxious, in distress Head exam: Present: atraumatic, normocephalic, normal inspection Eye exam: Present: normal appearance, PERRL, EOMI. Absent: scleral icterus, conjunctival injection, periorbital swelling ENT exam: Present: normal exam, mucous membranes moist Neck exam: Present: normal inspection. Absent: tenderness, meningismus, lymphadenopathy Respiratory exam: Present: normal lung sounds bilaterally. Absent: respiratory distress, wheezes, rales, rhonchi, stridor Cardiovascular Exam: Present: regular rate, normal rhythm, normal heart sounds. Absent: systolic murmur, diastolic murmur, rubs, gallop, clicks GI/Abdominal exam: Present: soft, normal bowel sounds. Absent: distended, tenderness, guarding, rebound, rigid Extremities exam: Present: normal inspection, full ROM, normal capillary refill. Absent: tenderness, pedal edema, joint swelling, calf tenderness Back exam: Present: normal inspection Neurological exam: Present: alert, oriented X3, CN II-XII intact Psychiatric exam: Present: normal affect, normal mood Skin exam: Present: warm, dry, intact, normal color. Absent: rash Course Vital Signs 04/23/22 04:55 Temperature 98 F Pulse Rate 93 Respiratory 18 Rate Blood Pressure 150/102 O2 Sat by Pulse 94 L Oximetry - Reevaluation(s) Reevaluation #1: 04/23/22 05:49 medical record is reviewed Medical clear for psychiatric evaluation Medical Decision Making - Medical Decision Making 32 male who was seen and evaluated psychiatry here in the ER. Patient is good for discharge home Disposition Clinical Impression: Drug overdose, Cannabis use disorder, mild, abuse, Acute anxiety, Psychosis, Drug-induced psychotic disorder Disposition: HOME SELF-CARE Condition: Fair Instructions (If sedation given, give patient instructions): Psychotic Disorder (ED) Is patient prescribed a controlled substance at d/c from ED?: No Referrals: None,Stated [Primary Care Provider] - 1-2 days Time of Disposition: 05:50
[2022-04-23] MEDS ORDERED: DIVALPROEX 500 MG TABLET.DR PO STA (05:39)
== END 2022-04-23 06:00 | disposition home or self-care (01) ==
LOC: EC 04:54
DX: F12.10 Cannabis abuse, uncomplicated (principal); F29 Unspecified psychosis not due to a substance or known physiological condition; F19.959 Other psychoactive substance use, unspecified with psychoactive substance-induced psychotic disorder, unspecified; F17.200 Nicotine dependence, unspecified, uncomplicated
CPT/HCPCS: 82075; 99284

== ENCOUNTER 2022-04-24 18:05 | Inpatient (IN) | payer MEDICAID, OTHER ==
--- NOTE | 2022-04-24 20:15 | ED ---
General Adult HPI - General Chief complaint: Psychiatric Symptoms Stated complaint: Petition Time Seen by Provider: 04/24/22 18:50 Source: patient, RN notes reviewed, old records reviewed Mode of arrival: ambulatory Limitations: no limitations - History of Present Illness Initial comments: This a 32-year-old male presents emergency Department in police custody. Police petitioned the patient to be admitted because he was stating he wanted to because his girlfriend this time he wants to before her. Patient states he did drink but only 122 on his.. Patient denies any drug use except for marijuana. Patient denies any physical complaints today. Patient denies any chest pain palpitations difficulty breathing shortest breath per patient denies any recent fever chills or cough. Patient denies abdominal pain patient denies nausea vomiting diarrhea - Related Data Home Medications Medication Instructions Recorded Confirmed Unable To Assess [Unable to Assess] 01/08/21 01/08/21 Previous Rx's Medication Instructions Recorded Divalproex ER [Depakote ER] 1,000 mg PO HS #60 tab.er.24h 06/17/19 FLUoxetine HCL [PROzac] 20 mg PO DAILY #30 cap 06/17/19 Nicotine 21Mg/24Hr Patch [Habitrol] 1 patch TRANSDERM DAILY #7 patch 06/17/19 Allergies Allergy/AdvReac Type Severity Reaction Status Date / Time No Known Allergies Allergy Verified 04/24/22 18:48 Review of Systems ROS Statement: Those systems with pertinent positive or pertinent negative responses have been documented in the HPI. ROS Other: All systems not noted in ROS Statement are negative. Past Medical History Past Medical History: No Reported History Additional Past Medical History / Comment(s): Occasional "extra beat". History of Any Multi-Drug Resistant Organisms: None Reported Past Surgical History: No Surgical Hx Reported Additional Past Surgical History / Comment(s): LFA intentional cut with surgical repair. Past Anesthesia/Blood Transfusion Reactions: No Reported Reaction Past Psychological History: ADD/ADHD, Anxiety, Bipolar, Depression, PTSD Smoking Status: Current every day smoker Past Alcohol Use History: Occasional Past Drug Use History: Cocaine, Heroin, Marijuana, Methamphetamine, None Reported - Past Family History Father Family Medical History: No Reported History, Renal Disease Additional Family Medical History / Comment(s): Father has heart valve problem. Mother Additional Family Medical History / Comment(s): Mother has psychological issues. General Exam - General Exam Comments Initial Comments: GENERAL: Patient is well-developed and well-nourished. Patient is nontoxic and well- hydrated and is in no acute distress. ENT: Neck is soft and supple. No significant lymphadenopathy is noted. Oropharynx is clear. Moist mucous membranes. Neck has full range of motion without eliciting any pain. EYES: The sclera were anicteric and conjunctiva were pink and moist. Extraocular movements were intact and pupils were equal round and reactive to light. Eyelids were unremarkable. PULMONARY: Unlabored respirations. Good breath sounds bilaterally. No audible rales rhonchi or wheezing was noted. CARDIOVASCULAR: There is a regular rate and rhythm without any murmurs gallops or rubs. ABDOMEN: Soft and nontender with normal bowel sounds. SKIN: Skin is clear with no lesions or rashes and otherwise unremarkable. NEUROLOGIC: Patient is alert and oriented x3. Cranial nerves II through XII are grossly intact. Motor and sensory are also intact. Normal speech, volume and content. Symmetrical smile. MUSCULOSKELETAL: Normal extremities with adequate strength and full range of motion. No lower extremity swelling or edema. No calf tenderness. LYMPHATICS: No significant lymphadenopathy is noted PSYCHIATRIC: Patient is tearful and states that he is suicidal. Limitations: no limitations Course Vital Signs 04/24/22 18:44 Temperature 97.0 F L Pulse Rate 103 H Respiratory 16 Rate Blood Pressure 134/71 O2 Sat by Pulse 95 Oximetry Medical Decision Making - Medical Decision Making EPS evaluated the patient and determined the patient needed to be admitted. - Lab Data Lab Results 04/24/22 Range/Units 19:55 Urine Opiates Screen Not Detected (NotDetected) Ur Oxycodone Screen Not Detected (NotDetected) Urine Methadone Screen Not Detected (NotDetected) Ur Propoxyphene Screen Not Detected (NotDetected) Ur Barbiturates Screen Not Detected (NotDetected) U Tricyclic Antidepress Not Detected (NotDetected) Ur Phencyclidine Scrn Not Detected (NotDetected) Ur Amphetamines Screen Not Detected (NotDetected) U Methamphetamines Scrn Not Detected (NotDetected) U Benzodiazepines Scrn Detected H (NotDetected) Urine Cocaine Screen Not Detected (NotDetected) U Marijuana (THC) Screen Detected H (NotDetected) Disposition Clinical Impression: Suicidal ideation, Depression Disposition: ADMITTED IP TO THIS HOSP Referrals: None,Stated [Primary Care Provider] - 1-2 days Time of Disposition: 21:10
[2022-04-24] MEDS ORDERED: NICOTINE 7MG/24HR PATCH TRANSDERM STA (21:04)
[2022-04-24 21:09] LABS: Amphetamine Screen,Urine Not Detected (NotDetected); Barbiturate Screen,Urine Not Detected (NotDetected); Benzodiazepines Screen,Urine Detected (NotDetected); Cocaine Screen,Urine Not Detected (NotDetected); Methadone Screen, Urine Not Detected (NotDetected); Opiate Screen,Urine Not Detected (NotDetected); Oxycodone Screen, Urine Not Detected (NotDetected); Phencyclidine Screen,Urine Not Detected (NotDetected); Tricyclic Antidepressant,Urine Not Detected (NotDetected); Urn Cannabinoid Scrn Detected (NotDetected)
[2022-04-24] MEDS ORDERED: HALOPERIDOL LACTATE 5 MG/ML 1 ML VIAL IM ONE (21:13)
[2022-04-24] MEDS ORDERED: LORazepam 2 MG/ML INJ IM ONE (21:13)
[2022-04-24] MEDS ORDERED: haloperidoL 5 MG TAB PO STA (21:43)
[2022-04-24] MEDS ORDERED: LORazepam 1 MG TAB PO STA (21:43)
[2022-04-24] MEDS ORDERED: MAGNESIUM HYDROXIDE 2,400 MG/10 ML CUP PO PRN (22:48)
[2022-04-24] MEDS ORDERED: ACETAMINOPHEN TAB 325 MG TAB PO PRN (22:48)
[2022-04-24] MEDS ORDERED: HALOPERIDOL LACTATE 5 MG/ML 1 ML VIAL IM PRN (22:48)
[2022-04-24] MEDS ORDERED: MAG HYDROX/AL HYDROX/SIMETH 30 ML CUP PO PRN (22:48)
[2022-04-25 00:35] LABS: Appearance,Urine Cloudy (Clear); Bilirubin,Urine Negative (Negative); Blood,Urine Negative (Negative); Calcium Oxalate Crystals,Urine Many /hpf; Color,Urine Yellow; Glucose,Urine (UA) Negative (Negative); Hyaline Casts,Urine 11 /lpf (0-2); Ketones,Urine Trace (Negative); Leukocyte Esterase,Urine Negative (Negative); Mucus,Urine Moderate /hpf; Nitrite,Urine Negative (Negative); Protein,Urine Trace (Negative); RBC,Urine 1 /hpf (0-5); Specific Gravity,Urine 1.037 (1.001-1.035); Squamous Epithelial Cell,Urine <1 /hpf (0-4); WBC,Urine 3 /hpf (0-5)
[2022-04-25] MEDS: NICOTINE 14MG/24HR PATCH TRANSDERM SCH (08:37)
[2022-04-25] MEDS: LORazepam 1 MG TAB PO PRN ×2 (09:43→18:06)
[2022-04-25] MEDS ORDERED: DIVALPROEX 500 MG TABLET.DR PO STA (11:06)
[2022-04-25] MEDS: NICOTINE GUM (POLACRILEX) 2 MG GUM BUCCAL PRN ×3 (11:20→21:06)
[2022-04-25] MEDS: haloperidoL 5 MG TAB PO PRN ×2 (13:49→20:59)
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
[2022-04-25] MEDS ORDERED: PALIPERIDONE 3 MG TAB.ER.24 PO SCH (21:00)
[2022-04-25] MEDS: DIVALPROEX ER 500 MG TAB.ER.24H PO SCH (21:00)
--- NOTE | 2022-04-25 21:18 | P.MDCNMH ---
History of Present Illness H&P Date: 04/25/22 Chief Complaint: Depression Patient is a 32-year-old male. He has been admitted to inpatient psychiatric facility for suicide ideation of wanting to establish himself. Patient has no medical history. He denies any nausea vomiting fever or chills. Only thing he states he is concerned about is his at home. Patient is denying any auditory or visual hallucinations Past Medical History Past Medical History: No Reported History Additional Past Medical History / Comment(s): Occasional "extra beat". History of Any Multi-Drug Resistant Organisms: None Reported Past Surgical History: No Surgical Hx Reported Additional Past Surgical History / Comment(s): LFA intentional cut with surgical repair. Past Anesthesia/Blood Transfusion Reactions: No Reported Reaction Past Psychological History: ADD/ADHD, Anxiety, Bipolar, Depression, PTSD Additional Psychological History / Comment(s): Pt states he is currently living alone. 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 Smoking Status: Current every day smoker Past Alcohol Use History: Occasional Additional Past Alcohol Use History / Comment(s): Pt started smoking in 2006. Past Drug Use History: Cocaine, Heroin, Marijuana, Methamphetamine, None Reported Additional Drug Use History / Comment(s): Pt states he uses heroin, crack, cocaine, marijuana and if he can get it, [facility]. He states he does not inject drugs - Past Family History Father Family Medical History: No Reported History, Renal Disease Additional Family Medical History / Comment(s): Father has heart valve problem. Mother Additional Family Medical History / Comment(s): Mother has psychological issues. Medications and Allergies Home Medications Medication Instructions Recorded Confirmed Type Divalproex ER [Depakote ER] 1,000 mg PO HS #60 tab.er.24h 06/17/19 Rx FLUoxetine HCL [PROzac] 20 mg PO DAILY #30 cap 06/17/19 Rx Nicotine 21Mg/24Hr Patch [Habitrol] 1 patch TRANSDERM DAILY #7 patch 06/17/19 Rx Unable To Assess [Unable to Assess] 01/08/21 01/08/21 History Allergies Allergy/AdvReac Type Severity Reaction Status Date / Time No Known Allergies Allergy Verified 04/25/22 00:35 Physical Exam Osteopathic Statement: *. No significant issues noted on an osteopathic structural exam other than those noted in the History and Physical/Consult. Vitals: Vital Signs Temp Pulse Resp BP Pulse Ox 04/24/22 23:44 97.9 F 78 16 119/58 96 Intake and Output 04/25/22 04/25/22 04/25/22 06:59 14:59 22:59 Other: Weight 71.753 kg - Constitutional General appearance: cooperative - EENT Eyes: EOMI, PERRLA - Respiratory Respiratory: bilateral: CTA - Cardiovascular Rhythm: regular Heart sounds: normal: S1, S2 - Gastrointestinal General gastrointestinal: normal bowel sounds, soft - Neurologic Neurologic: CNII-XII intact - Psychiatric Psychiatric: A&O x's 3 Cranial Nerve Examination - Cranial Nerves Cranial Nerve I- Olfactory: Intact Cranial Nerve II- Optic: Intact Cranial Nerve III- Oculomotor: Intact Cranial Nerve IV- Trochlear: Intact Cranial Nerve V- Trigeminal: Intact Cranial Nerve - Abducens: Intact Cranial Nerve VII- Facial: Intact Cranial Nerve VIII- Auditory: Intact Cranial Nerve IX- Glossopharyngeal: Intact Cranial Nerve X- Vagus: Intact Cranial Nerve XI- Accessory: Intact Cranial Nerve XII- Hypoglossal: Intact Results Labs: Abnormal Lab Results - Last 24 Hours (Table) 04/24/22 Range/Units 19:55 Ur Specific Carlotta 1.037 H (1.001-1.035) Urine Protein Trace H (Negative) Urine Ketones Trace H (Negative) Calcium Oxalate Crystal Many H (None) /hpf Hyaline Casts 11 H (0-2) /lpf Urine Mucus Moderate H (None) /hpf Assessment and Plan (1) Suicidal ideation Current Visit: Yes Status: Acute Code(s): R45.851 - SUICIDAL IDEATIONS SNOMED Code(s): 3025621 Plan: Suicide ideation Depression PTSD Bipolar -Management per psychiatric team patient is admitted to inpatient psychiatric facility -Patient's current med include Depakote, fluoxetine, Haldol when necessary, Ativan when necessary Tobacco abuse -Nicotine patch
[2022-04-26] MEDS: NICOTINE 14MG/24HR PATCH TRANSDERM SCH (08:48)
[2022-04-26] MEDS: FLUoxetine HCL 20 MG CAP PO SCH (08:48)
[2022-04-26] MEDS: DIVALPROEX 500 MG TABLET.DR PO SCH (08:48)
[2022-04-26] MEDS: NICOTINE GUM (POLACRILEX) 2 MG GUM BUCCAL PRN ×4 (08:49→21:16)
[2022-04-26] MEDS: LORazepam 1 MG TAB PO PRN ×2 (10:42→18:30)
--- NOTE | 2022-04-26 12:07 | P.PN ---
Progress Note - Text Progress Note Date: 04/26/22 Interval History: Patient was seen wandering the hallways and was directable and agreeable to speak with staff writer in the office. The patient reports that he is able to sleep last night. However, the patient continues to endorse significant psychotic symptoms including delusional belief that his fiance is in danger. He is unable to identify any particular danger aside from the concern that she might have a complicated . He is very tearful at this thought. He is denying any auditory or visual hallucinations at this time. He reports no suicidal or homicidal ideation, intention, and/or plan. He reports an improved appetite. He has been in adherent with his medications and is not endorsing any significant side effects. Mental Status Exam: General Appearance: Patient appears to be stated age is alert, directable, and cooperative. Behavior: Patient is calmly seated without any agitated behavior. Eye contact is appropriate. Speech: Patient's speech is fluent and nonpressured. Repetitive. Mood/Affect: Mood is "scared." Affect is tearful and anxious. Suicidality/Homicidality: Patient reports no suicidal or homicidal ideation, intention, and/or plan. Perceptions: Patient denies any visual hallucinations and denies any auditory hallucinations Though content/process: Patient is fixated on the safety of his fiance. Memory and concentration: AOX3, grossly intact for the purposes of this session Judgment and insight: Improving mildly Vital Signs Temp 97.9 F 04/24/22 23:44 Pulse 78 04/24/22 23:44 Resp 16 04/24/22 23:44 BP 119/58 04/24/22 23:44 Pulse Ox 96 04/24/22 23:44 FiO2 Assessment Bipolar 1 disorder, with manic features Cluster B personality disorder Tobacco use disorder Cannabis use disorder Plan: -Patient continues to meet criteria for inpatient psychiatric admission for symptom stabilization and safety. Patient has signed adult voluntary form and medication consent and was placed in patient's chart. -Medications: Continue Prozac 20 mg by mouth daily for depression/anxiety/PTSD Continue Depakote 500 mg by mouth every morning and 1000 g by mouth daily at bedtime for mood stabilization We will increase Invega to 6 mg by mouth at bedtime for mood stabi lization/psychosis and titrate to 9 mg over the weekend. -When necessary Ativan and Haldol for agitation/aggression. -NRT -Nicorette gum -SW on board for discharge planning. Encouraged the patient to participate in milieu.
[2022-04-26 15:07] LABS: Basophils # (A) 0.1 k/uL (0-0.2); Basophils % (A) 1 %; Eosinophils # (A) 0.4 k/uL (0-0.7); Eosinophils % (A) 6 %; HCT 40.2 % (39.0-53.0); HGB 13.3 gm/dL (13.0-17.5); Lymphocytes # (A) 1.4 k/uL (1.0-4.8); Lymphocytes % (A) 20 %; MCH 31.3 pg (25.0-35.0); MCHC 33.1 g/dL (31.0-37.0); MCV 94.7 fL (80.0-100.0); Monocytes # (A) 0.4 k/uL (0-1.0); Monocytes % (A) 6 %; Neutrophils # (A) 4.3 k/uL (1.3-7.7); Neutrophils % (A) 64 %; Platelet Count 216 k/uL (150-450); RBC 4.25 m/uL (4.30-5.90); RDW 12.8 % (11.5-15.5); WBC 6.7 k/uL (3.8-10.6)
[2022-04-26 15:17] LABS: ALT 26 U/L (4-49); AST 27 U/L (17-59); African American GFR (CKD) >90 (>60 ml/min/1.73 sqM); Alkaline Phosphatase 49 U/L (38-126); Anion Gap 5 mmol/L; Blood Urea Nitrogen 15 mg/dL (9-20); Calcium 9.1 mg/dL (8.4-10.2); Carbon Dioxide 30 mmol/L (22-30); Chloride 105 mmol/L (98-107); Glucose 108 mg/dL (74-99); Non-African American GFR(CKD) >90 (>60 ml/min/1.73 sqM); Potassium 4.5 mmol/L (3.5-5.1); Sodium 140 mmol/L (137-145); Total Bilirubin 0.1 mg/dL (0.2-1.3); Total Protein 6.2 g/dL (6.3-8.2)
[2022-04-26] MEDS ORDERED: PALIPERIDONE 3 MG TAB.ER.24 PO SCH (21:00)
[2022-04-26] MEDS: DIVALPROEX ER 500 MG TAB.ER.24H PO SCH (21:15)
[2022-04-27] MEDS: NICOTINE 14MG/24HR PATCH TRANSDERM SCH (08:08)
[2022-04-27] MEDS: DIVALPROEX 500 MG TABLET.DR PO SCH (08:09)
[2022-04-27] MEDS: FLUoxetine HCL 20 MG CAP PO SCH (08:09)
--- NOTE | 2022-04-27 09:36 | P.PN ---
Subjective Progress Note Date: 04/27/22 Principal diagnosis: Bipolar 1 disorder, with manic features Patient was sleeping in his room at 9:30 in the morning complaining that her schedule was all messed up. That was agreeable to speak with speech writer in the office. Mental Status Exam: General Appearance: Patient appears to be stated age is alert, directable, and cooperative but no eye contact and several times I felt slightly endangered when he would begin to escalate and become agitated. Behavior: He would talk louder and louder when he would get off on how he was treated as a foster child or that his fiance will not take his phone calls so she must be just like your by else in the world and doesn't love him. This is okay because strong people do not need love. Besides who could love a piece of shit like him. Or he would talk about how he was unloved by his family unloved by his foster and nobody ever loved him and nobody ever would. He'll go on abo ut how he needs to get his act together because now he is a father but how does he know it's even his son. Then he hasn't talk about how she didn't love him she just needed a "seed donor". Speech: Spirals up into louder and louder and more pressure Mood/Affect: Mood is depressed and angry Suicidality/Homicidality: Patient reports no suicidal or homicidal ideation, intention, and/or plan. Perceptions: Patient denies any visual hallucinations and denies any auditory hallucinations Though content/process: Goal is round around on problems and then how the problems are unsolvable and it's okay for retained to be terrible Memory and concentration: AOX3, grossly intact for the purposes of this session Judgment and insight: Very limited Diagnosis: Bipolar 1 disorder, with manic features Cluster B personality disorder Tobacco use disorder Cannabis use disorder Plan: -Patient continues to meet criteria for inpatient psychiatric admission for symptom stabilization and safety his impulsive and unpredictable shifts of focus and anger pose a danger to himself and others. Patient has signed adult voluntary form and medication consent and was placed in patient's chart. -Medications: The current plan is to: Continue Prozac 20 mg by mouth daily for depression/anxiety/PTSD Continue Depakote 500 mg by mouth every morning and 1000 g by mouth daily at bedtime for mood stabilization We will increase Invega to 6 mg by mouth at bedtime for mood stabilization/psychosis and titrate to 9 mg over the weekend. -When necessary Ativan and Haldol for agitation/aggression. -NRT -Nicorette gum -SW on board for discharge planning. Encouraged the patient to participate in milieu. Objective - Vital Signs Vital signs: Vital Signs Temp 97.9 F 04/24/22 23:44 Pulse 78 04/24/22 23:44 Resp 16 04/24/22 23:44 BP 119/58 04/24/22 23:44 Pulse Ox 96 04/24/22 23:44 FiO2 - Labs CBC & Chem 7: 04/26/22 14:44 04/26/22 14:44 Labs: Abnormal Lab Results - Last 24 Hours (Table) 04/26/22 04/26/22 Range/Units 14:44 14:44 RBC 4.25 L (4.30-5.90) m/uL Glucose 108 H (74-99) mg/dL Total Bilirubin 0.1 L (0.2-1.3) mg/dL Total Protein 6.2 L (6.3-8.2) g/dL
[2022-04-27] MEDS: NICOTINE GUM (POLACRILEX) 2 MG GUM BUCCAL PRN ×2 (11:49→21:53)
[2022-04-27] MEDS: LORazepam 1 MG TAB PO PRN ×2 (12:59→21:53)
[2022-04-27] MEDS: DIVALPROEX ER 500 MG TAB.ER.24H PO SCH (21:49)
[2022-04-27] MEDS: PALIPERIDONE 3 MG TAB.ER.24 PO SCH (21:50)
[2022-04-28] MEDS: FLUoxetine HCL 20 MG CAP PO SCH (08:06)
[2022-04-28] MEDS: DIVALPROEX 500 MG TABLET.DR PO SCH (08:06)
[2022-04-28] MEDS: LORazepam 1 MG TAB PO PRN ×2 (08:07→16:48)
[2022-04-28] MEDS: NICOTINE GUM (POLACRILEX) 2 MG GUM BUCCAL PRN ×4 (08:58→20:34)
--- NOTE | 2022-04-28 09:09 | P.PN ---
Subjective Progress Note Date: 04/28/22 Principal diagnosis: Bipolar 1 disorder, with manic features Bipolar 1 disorder, with manic features Patient was agitated and yelling in the sheets. He had become quite agitated earlier this morning and was given a when necessary of Ativan. He was now claiming that that broke a cycle of trust when he was given a medicine he didn't want. He acknowledged it did help him calm down but now how could he tell whether we were giving him medicines to poison him or not. He was loud but did not threaten anyone and calmed down and was willing to talk with me. He understands that the Prozac takes time to kick in and he is also on intake which is now 9 mg and seems to be tolerating that without lethargy. He was focused on wanting to be there with his girlfriend when she gets her exams in order to be a support for her. Mental Status Exam: General Appearance: Patient appears to be stated age is alert, he was talking very loud but was not irrational just did not want to hear the other side of the situation . Behavior: He still has a ways to go on the medicine is helping him but he still cycles up and down into agitated episodes Speech: Spirals up into louder and louder and more pressure Mood/Affect: Mood is serious and angry Suicidality/Homicidality: Patient reports no suicidal or homicidal ideation, intention, and/or plan. Perceptions: Patient denies any visual hallucinations and denies any auditory hallucinations Though content/process: Goal is round around on problems and then how the problems are unsolvable and it's okay for retained to be terrible Memory and concentration: AOX3, grossly intact for the purposes of this session Judgment and insight: Very limited Diagnosis: Bipolar 1 disorder, with manic features Cluster B personality disorder Tobacco use disorder Cannabis use disorder Plan: -Patient continues to meet criteria for inpatient psychiatric admission for symptom stabilization and safety his impulsive and unpredictable shifts of focus and anger pose a danger to himself and others. Patient has signed adult voluntary form and medication consent and was placed in patient's chart. -Medications: The current plan is to: Continue Prozac 20 mg by mouth daily for depression/anxiety/PTSD Continue Depakote 500 mg by mouth every morning and 1000 g by mouth daily at bedtime for mood stabilization We will increase Invega to 6 mg by mouth at bedtime for mood stabilization/psychosis and titrate to 9 mg over the weekend. -When necessary Ativan and Haldol for agitation/aggression. -NRT -Nicorette gum -SW on board for discharge planning. Encouraged the patient to participate in milieu. Objective - Vital Signs Vital signs: Vital Signs Temp 98.0 F 04/28/22 06:54 Pulse 107 H 04/28/22 06:54 Resp 18 04/28/22 06:54 BP 138/67 04/28/22 06:54 Pulse Ox 96 04/24/22 23:44 FiO2 Intake & Output 04/27/22 04/28/22 04/28/22 18:59 06:59 18:59 Weight 71.8 kg - Labs CBC & Chem 7: 04/26/22 14:44 04/26/22 14:44
[2022-04-28] MEDS: haloperidoL 5 MG TAB PO PRN (11:37)
[2022-04-28] MEDS: PALIPERIDONE 3 MG TAB.ER.24 PO SCH (20:34)
[2022-04-28] MEDS: DIVALPROEX ER 500 MG TAB.ER.24H PO SCH (20:34)
[2022-04-29] MEDS: FLUoxetine HCL 20 MG CAP PO SCH (08:05)
[2022-04-29] MEDS: DIVALPROEX 500 MG TABLET.DR PO SCH (08:05)
[2022-04-29] MEDS: NICOTINE GUM (POLACRILEX) 2 MG GUM BUCCAL PRN (08:47)
[2022-04-29] MEDS: LORazepam 1 MG TAB PO PRN (08:47)
--- NOTE | 2022-04-29 11:37 | P.PN ---
Progress Note - Text Progress Note Date: 04/29/22 Interval History: Patient was seen wandering the hallways and was directable and agreeable to speak with chief writer in the office. Currently, the patient is not reporting any issues regarding his mood. He is reporting no suicidal or homicidal ideation, intention, and/or plan. He is not reporting any auditory or visual hallucinations. He denies any paranoia or other he has been adherent with his medications and is not reporting any significant side effects at this time. The patient does report that he is feeling increasingly fatigued this morning. It was noted that he did receive Ativan this morning to help with his anxiety. The patient reports that he would like to groups today that he may sleep it off. The patient has been otherwise adherent with his medications and not reporting any significant side effects. The patient is expressing a desire for discharge. Mental Status Exam: General Appearance: Patient appears to be stated age is alert, directable, and cooperative. Behavior: Patient is calmly seated without any agitated behavior. Eye contact is appropriate. Speech: Patient's speech is fluent and nonpressured. Mood/Affect: Mood is "feeling much better." Affect is euthymic with appropriate range. Suicidality/Homicidality: Patient reports no suicidal or homicidal ideation, intention, and/or plan. Perceptions: Patient denies any visual hallucinations and denies any auditory hallucinations Though content/process: Patient is not endorsing any overt delusional thought content. Linear and logical in short conversation. Memory and concentration: AOX3, grossly intact for the purposes of this session Judgment and insight: Improving mildly Vital Signs Temp 97.5 F L 04/29/22 08:06 Pulse 97 04/29/22 08:06 Resp 18 04/29/22 08:06 BP 135/73 04/29/22 08:06 Pulse Ox 96 04/24/22 23:44 FiO2 Intake & Output 04/28/22 04/29/22 04/29/22 18:59 06:59 18:59 Weight 71.8 kg Assessment Bipolar 1 disorder, with manic features Cluster B personality disorder Tobacco use disorder Cannabis use disorder Plan: -Patient continues to meet criteria for inpatient psychiatric admission for symptom stabilization and safety. Patient has signed adult voluntary form and medication consent and was placed in patient's chart. -Medications: Continue Prozac 20 mg by mouth daily for depression/anxiety/PTSD Continue Depakote 500 mg by mouth every morning and 1000 mg by mouth daily at bedtime for mood stabilization Continue Invega 9 mg by mouth at bedtime for mood stabilization/psychosis -When necessary Ativan and Haldol for agitation/aggression. -NRT -Nicorette gum -SW on board for discharge planning. Encouraged the patient to participate in milieu.
[2022-04-29] MEDS ORDERED: NALOXONE 0.4 MG/ML 1 ML VIAL IVP PRN (19:00)
[2022-04-29 19:02] LABS: Glucose,Whole Blood 228 mg/dL (70-110)
[2022-04-29] MEDS ORDERED: NALOXONE 0.4 MG/ML 1 ML VIAL ONE (19:02)
[2022-04-29 19:16] VITALS: TEMP 98
[2022-04-29 19:17] VITALS: BP 138/70; PULSE 98
[2022-04-29 19:31] LABS: Basophils % (A) 0 %; Eosinophils # (A) 0.2 k/uL (0-0.7); Eosinophils % (A) 2 %; HCT 43.8 % (39.0-53.0); HGB 14.4 gm/dL (13.0-17.5); Lymphocytes # (A) 1.3 k/uL (1.0-4.8); Lymphocytes % (A) 11 %; MCH 31.4 pg (25.0-35.0); MCHC 32.9 g/dL (31.0-37.0); MCV 95.4 fL (80.0-100.0); Mean Platelet Volume 7.8; Monocytes # (A) 0.8 k/uL (0-1.0); Monocytes % (A) 7 %; Neutrophils # (A) 9.4 k/uL (1.3-7.7); Neutrophils % (A) 78 %; Platelet Count 235 k/uL (150-450); RDW 13.3 % (11.5-15.5)
[2022-04-29 19:41] LABS: African American GFR (CKD) >90 (>60 ml/min/1.73 sqM); Anion Gap 8 mmol/L; Blood Urea Nitrogen 13 mg/dL (9-20); Calcium 9.3 mg/dL (8.4-10.2); Carbon Dioxide 27 mmol/L (22-30); Chloride 104 mmol/L (98-107); Glucose 159 mg/dL (74-99); Non-African American GFR(CKD) >90 (>60 ml/min/1.73 sqM); Sodium 139 mmol/L (137-145)
[2022-04-29] MEDS ORDERED: NALOXONE 0.4 MG/ML 1 ML VIAL IM PRN (19:41)
[2022-04-29 19:49] VITALS: RESP 16
[2022-04-29 20:27] LABS: Cocaine Screen,Urine Not Detected (NotDetected); Phencyclidine Screen,Urine Not Detected (NotDetected); Urn Cannabinoid Scrn Detected (NotDetected)
[2022-04-29 20:28] LABS: Amphetamine Screen,Urine Not Detected (NotDetected); Barbiturate Screen,Urine Not Detected (NotDetected); Benzodiazepines Screen,Urine Detected (NotDetected); Methadone Screen, Urine Not Detected (NotDetected); Opiate Screen,Urine Not Detected (NotDetected); Oxycodone Screen, Urine Not Detected (NotDetected); Tricyclic Antidepressant,Urine Not Detected (NotDetected)
[2022-04-29] MEDS ORDERED: DIVALPROEX ER 500 MG TAB.ER.24H PO SCH ×3 (21:00)
[2022-04-30] MEDS ORDERED: LACTULOSE 200 GM/300 ML (FROM 1/2 GAL JUG) RECTAL ONE (00:04)
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
--- NOTE | 2022-04-30 14:43 | P.CN ---
Psychiatric Consult - . Consult date: 04/30/22 Consult:: 04/30/22 14:43 IDENTIFYING DATA: Patient is a single, unemployed, 32-year-old male with a significant history of bipolar disorder, cluster B personality disorder, and PTSD presents to the hospital for suicidal ideation and was admitted onto the psychiatric unit from 04/24/2022 - 04/29/2022. The patient was transferred to the medical floor for altered mental status and hyperammonemia HISTORY OF PRESENT ILLNESS: The patient presented to the hospital on 04/24/2022 for suicidal ideation in the context of medication nonadherence and active mixed episode of bipolar disorder. The patient was stabilized on the psychiatric unit with a regimen of Invega and Depakote. However, the patient displayed an acute alteration in mentation which was determined to be secondary to hyperammonemia. He was subsequently transferred out of the psychiatric unit onto the medical floor. Evaluated at bedside on the medical floor, the patient is vehemently denying any suicidal or homicidal ideation, intention, and/or plan. He denies any access to firearms or other weapons. He presents as bright and is reporting that he is feeling significantly better. The patient denies any auditory or visual hallucinations. He denies any paranoia or other delusions. The patient expresses strong desire to be discharged today. Initially, the plan was to have the patient be discharged from the psychiatric unit today however his admission to the medical floor was necessary due to his hyperammonemia and altered mental status. The patient is presently feeling significantly better and has an appointment with [facility] on the . He initially told this provider that he was going to stay on the medical floor until medically cleared and discharged with appropriate aftercare appointments and medication prescriptions. However, this provider was informed by the patient's nurse that he signed out AGAINST MEDICAL ADVICE as he chose not to wait. PAST PSYCHIATRIC HISTORY: Patient states that he has been previously diagnosed with bipolar disorder, borderline personality disorder, and PTSD. The patient reports that he has trialed patient however is able to recall most recently Depakote, Prozac, and Ativan. The patient states that he hasn't had more than 30 psychiatric hospitalizations with the last time being in 2019 on the psychiatric unit. He is currently open with [facility]. The patient reports multiple attempts at suicide in the past. PAST MEDICAL HISTORY: Past Medical History: No Reported History Additional Past Medical History / Comment(s): Occasional "extra beat". History of Any Multi-Drug Resistant Organisms: None Reported Past Surgical History: No Surgical Hx Reported Additional Past Surgical History / Comment(s): LFA intentional cut with surgical repair. Past Anesthesia/Blood Transfusion Reactions: No Reported Reaction Past Psychological History: ADD/ADHD, Anxiety, Bipolar, Depression, PTSD Smoking Status: Current every day smoker Past Alcohol Use History: Occasional Past Drug Use History: Cocaine, Heroin, Marijuana, Methamphetamine, None Reported ALLERGIES: NO KNOWN DRUG ALLERGIES CHEMICAL DEPENDENCY HISTORY: The patient reports daily marijuana use. He states that he smokes 2-1/2 packs of cigarettes per day. He denies any illicit drug use however does report a history of cocaine, methamphetamine, mescaline, and other drug use. FAMILY PSYCHIATRIC/SUBSTANCE USE HISTORY: Unable to assess. Patient reports that he was adopted. SOCIAL HISTORY: Patient was born and raised in the [place] area. He is currently engaged to his girlfriend Nancy over the past 6 months however they have known each other for many years. He reports no children. He is currently listed as unemployed. MENTAL STATUS EXAM: General Appearance: Patient appears to be stated age is alert, pleasant, and cooperative. Patient appears to have fair hygiene and grooming wearing hospital gown with fair eye contact. Behavior: She is calmly seated upright in bed without any agitated behavior. Speech: Patient's speech is fluent and nonpressured. Mood/Affect: Patient reports their mood is "feeling really good", affect is congruent and bright Suicidality/Homicidality: Patient denies having any suicidal or homicidal ideation intent or plan. Perceptions: Patient denies any visual hallucinations and denies any auditory hallucinations Though content/process: There is no evidence of any delusional thought content and thought process is linear and goal-directed. Memory and concentration: AOX3, grossly intact for the purposes of this session. Can spell "WORLD" backwards Judgment and insight: Fair Vital Signs Temp 98 F 04/29/22 18:25 Pulse 98 04/29/22 18:40 Resp 16 04/29/22 19:05 BP 138/70 04/29/22 18:40 Pulse Ox 98 04/29/22 18:40 FiO2 Laboratory Results WBC 12.0 k/uL (3.8-10.6) H 04/29/22 19:17 RBC 4.60 m/uL (4.30-5.90) 04/29/22 19:17 Hgb 14.4 gm/dL (13.0-17.5) 04/29/22 19:17 Hct 43.8 % (39.0-53.0) 04/29/22 19:17 MCV 95.4 fL (80.0-100.0) 04/29/22 19:17 MCH 31.4 pg (25.0-35.0) 04/29/22 19:17 MCHC 32.9 g/dL (31.0-37.0) 04/29/22 19:17 RDW 13.3 % (11.5-15.5) 04/29/22 19:17 Plt Count 235 k/uL (150-450) 04/29/22 19:17 MPV 7.8 04/29/22 19:17 Neutrophils % 78 % 04/29/22 19:17 Lymphocytes % 11 % 04/29/22 19:17 Monocytes % 7 % 04/29/22 19:17 Eosinophils % 2 % 04/29/22 19:17 Basophils % 0 % 04/29/22 19:17 Neutrophils # 9.4 k/uL (1.3-7.7) H 04/29/22 19:17 Lymphocytes # 1.3 k/uL (1.0-4.8) 04/29/22 19:17 Monocytes # 0.8 k/uL (0-1.0) 04/29/22 19:17 Eosinophils # 0.2 k/uL (0-0.7) 04/29/22 19:17 Basophils # 0.0 k/uL (0-0.2) 04/29/22 19:17 Sodium 139 mmol/L (137-145) 04/29/22 19:17 Potassium 4.0 mmol/L (3.5-5.1) 04/29/22 19:17 Chloride 104 mmol/L (98-107) 04/29/22 19:17 Carbon Dioxide 27 mmol/L (22-30) 04/29/22 19:17 Anion Gap 8 mmol/L 04/29/22 19:17 BUN 13 mg/dL (9-20) 04/29/22 19:17 Creatinine 0.75 mg/dL (0.66-1.25) 04/29/22 19:17 Est GFR (CKD-EPI)AfAm >90 (>60 ml/min/1.73 sqM) 04/29/22 19:17 Est GFR (CKD-EPI)NonAf >90 (>60 ml/min/1.73 sqM) 04/29/22 19:17 Glucose 159 mg/dL (74-99) H 04/29/22 19:17 POC Glucose (mg/dL) 228 mg/dL (70-110) H 04/29/22 18:52 POC Glu Testing Coordinator ID Virginia Walter 04/29/22 18:52 Calcium 9.3 mg/dL (8.4-10.2) 04/29/22 19:17 Total Bilirubin 0.1 mg/dL (0.2-1.3) L 04/26/22 14:44 AST 27 U/L (17-59) 04/26/22 14:44 ALT 26 U/L (4-49) 04/26/22 14:44 Alkaline Phosphatase 49 U/L (38-126) 04/26/22 14:44 Ammonia 299 umol/L (<30) H 04/29/22 19:17 Total Protein 6.2 g/dL (6.3-8.2) L 04/26/22 14:44 Albumin 4.0 g/dL (3.5-5.0) 04/26/22 14:44 Urine Color Yellow 04/24/22 19:55 Urine Appearance Cloudy (Clear) 04/24/22 19:55 Urine pH 5.0 (5.0-8.0) 04/24/22 19:55 Ur Specific [place] 1.037 (1.001-1.035) H 04/24/22 19:55 Urine Protein Trace (Negative) H 04/24/22 19:55 Urine Glucose (UA) Negative (Negative) 04/24/22 19:55 Urine Ketones Trace (Negative) H 04/24/22 19:55 Urine Blood Negative (Negative) 04/24/22 19:55 Urine Nitrite Negative (Negative) 04/24/22 19:55 Urine Bilirubin Negative (Negative) 04/24/22 19:55 Urine Urobilinogen 2.0 mg/dL (<2.0) 04/24/22 19:55 Ur Leukocyte Esterase Negative (Negative) 04/24/22 19:55 Urine RBC 1 /hpf (0-5) 04/24/22 19:55 Urine WBC 3 /hpf (0-5) 04/24/22 19:55 Ur Squamous Epith Cells <1 /hpf (0-4) 04/24/22 19:55 Calcium Oxalate Crystal Many /hpf (None) H 04/24/22 19:55 Hyaline Casts 11 /lpf (0-2) H 04/24/22 19:55 Urine Mucus Moderate /hpf (None) H 04/24/22 19:55 Urine Opiates Screen Not Detected (NotDetected) 04/29/22 19:52 Ur Oxycodone Screen Not Detected (NotDetected) 04/29/22 19:52 Urine Methadone Screen Not Detected (NotDetected) 04/29/22 19:52 Ur Propoxyphene Screen Not Detected (NotDetected) 04/29/22 19:52 Ur Barbiturates Screen Not Detected (NotDetected) 04/29/22 19:52 U Tricyclic Antidepress Not Detected (NotDetected) 04/29/22 19:52 Ur Phencyclidine Scrn Not Detected (NotDetected) 04/29/22 19:52 Ur Amphetamines Screen Not Detected (NotDetected) 04/29/22 19:52 U Methamphetamines Scrn Not Detected (NotDetected) 04/29/22 19:52 U Benzodiazepines Scrn Detected (NotDetected) H 04/29/22 19:52 Urine Cocaine Screen Not Detected (NotDetected) 04/29/22 19:52 U Marijuana (THC) Screen Detected (NotDetected) H 04/29/22 19:52 Coronavirus (PCR) Not Detected (Not Detectd) 04/24/22 22:00 Allergies Allergy/AdvReac Type Severity Reaction Status Date / Time No Known Allergies Allergy Verified 04/25/22 00:35 IMPRESSIONS: Altered mental status, resolved - likely secondary to hyperammonemia Bipolar 1 disorder, mixed episode, resolved Cluster B personality disorder Tobacco use disorder Cannabis use disorder PLAN: -At this time patient DOES NOT meet criteria for inpatient psychiatric admi ssion. The patient was cleared psychiatrically as he no longer presented with any acute manic symptoms and reported no suicidal or homicidal ideation, intention, and/or plan. He was future and goal oriented and presented as bright and friendly and polite. -He was informed to continue with his hospitalization until medically cleared and appropriate outpatient services were set up. He was advised to continue with his medication including Invega however to stop any Depakote. Initially, the patient was agreeable however he ended up signing out AGAINST MEDICAL ADVICE. The patient did have capacity for medical decision-making. The patient did express that he had appointment with [facility] scheduled for May 08. Assessment and Plan (1) Bipolar 1 disorder, mixed, severe Status: Acute Priority: High Code(s): F31.63 - BIPOLAR DISORD, CRNT EPSD MIXED, SEVERE, W/O PSYCH FEATURES SNOMED Code(s): 347199185115 (2) Hyperammonemia Status: Acute Priority: High Code(s): E72.20 - DISORDER OF UREA CYCLE METABOLISM, UNSPECIFIED SNOMED Code(s): 6431688 (3) Cluster B personality disorder Status: Chronic Priority: Medium Code(s): F60.89 - OTHER SPECIFIC PERSONALITY DISORDERS SNOMED Code(s): 3316529 (4) Tobacco use disorder Status: Chronic Priority: Medium Code(s): F17.200 - NICOTINE DEPENDENCE, UNSPECIFIED, UNCOMPLICATED SNOMED Code(s): 436411612 (5) Cannabis use disorder, mild, abuse Status: Chronic Priority: Medium Code(s): F12.10 - CANNABIS ABUSE, UNCOMPLICATED SNOMED Code(s): 51856977
== END 2022-04-29 19:56 | disposition short-term general hospital (02) | DRG 885 ==
LOC: EC 18:05 → 3MHU 22:44
PROVIDERS: ADMIT Psychiatry & Neurology Psychiatry; ATTEND Psychiatry & Neurology Psychiatry
DX: F31.63 Bipolar disorder, current episode mixed, severe, without psychotic features (principal); E72.4 Disorders of ornithine metabolism; R45.851 Suicidal ideations; F17.210 Nicotine dependence, cigarettes, uncomplicated; Z20.822 Contact with and (suspected) exposure to COVID-19; Z56.0 Unemployment, unspecified; F60.3 Borderline personality disorder; F12.10 Cannabis abuse, uncomplicated; F43.10 Post-traumatic stress disorder, unspecified; F22 Delusional disorders; F60.89 Other specific personality disorders; F90.9 Attention-deficit hyperactivity disorder, unspecified type
CPT/HCPCS: 80048; 80053; 80306; 81001; 82075; 82140; 85025; 87635; 99285

== ENCOUNTER 2022-04-29 19:20 | Inpatient (IN) | payer OTHER ==
[2022-04-29] MEDS ORDERED: LACTULOSE 200 GM/300 ML (FROM 1/2 GAL JUG) RECTAL ONE (22:00)
[2022-04-29] MEDS ORDERED: SODIUM CHLORIDE 0.9% 1,000 ML IV ONE (22:04)
[2022-04-29 22:12] LABS: Prothrombin Time 10.6 sec (9.0-12.0)
[2022-04-29] MEDS ORDERED: SODIUM CHLORIDE 0.9% 1,000 ML IV SCH (22:15)
[2022-04-29 22:35] LABS: Glucose,Whole Blood 105 mg/dL (70-110)
[2022-04-29 23:18] LABS: ALT 26 U/L (4-49); AST 23 U/L (17-59); African American GFR (CKD) >90 (>60 ml/min/1.73 sqM); Albumin 4.7 g/dL (3.5-5.0); Albumin/Globulin Ratio 1.8; Alkaline Phosphatase 50 U/L (38-126); Anion Gap 10 mmol/L; Blood Urea Nitrogen 13 mg/dL (9-20); Calcium 9.8 mg/dL (8.4-10.2); Carbon Dioxide 28 mmol/L (22-30); Chloride 105 mmol/L (98-107); Globulin 2.6 g/dL; Glucose 103 mg/dL (74-99); Non-African American GFR(CKD) >90 (>60 ml/min/1.73 sqM); Potassium 4.1 mmol/L (3.5-5.1); Sodium 143 mmol/L (137-145); Total Bilirubin 0.3 mg/dL (0.2-1.3); Total Protein 7.3 g/dL (6.3-8.2)
[2022-04-30] MEDS ORDERED: LACTULOSE 200 GM/300 ML (FROM 1/2 GAL JUG) RECTAL ONE (00:15)
--- NOTE | 2022-04-30 00:34 | CT ---
EXAM: CT Head Without Intravenous Contrast CLINICAL HISTORY: ITS.REASON CT Reason: Lethargy TECHNIQUE: Axial computed tomography images of the head/brain without intravenous contrast. CTDI is 47.27 mGy and DLP is 1145.4 mGy-cm. This CT exam was performed using one or more of the following dose reduction techniques: automated exposure control, adjustment of the mA and/or kV according to patient size, and/or use of iterative reconstruction technique. COMPARISON: No relevant prior studies available. FINDINGS: Brain: Unremarkable. No hemorrhage. No significant white matter disease. No edema. Ventricles: Unremarkable. No ventriculomegaly. Bones/joints: Unremarkable. No acute fracture. Soft tissues: Unremarkable. Sinuses: Unremarkable as visualized. No acute sinusitis. Mastoid air cells: Unremarkable as visualized. No mastoid effusion. IMPRESSION: No evidence of acute intracranial pathology.
--- NOTE | 2022-04-30 02:25 | P.HPIM ---
History of Present Illness H&P Date: 04/29/22 The patient is a 32-year-old male with a PMH of polysubstance abuse, bipolar disorder, anxiety, and PTSD who had initially presented to the emergency room on 04/24 for depression and suicidal ideation. The patient was admitted to the mental health unit. I was informed that the patient had become lethargic. I subsequently saw the patient at the bedside in the mental health unit. The patient was lethargic at the time of interview, and minimal history could be obtained, although the patient would occasionally sit up and ask to leave. He was following basic directions and denied any active complaints. Laboratory evaluation was remarkable for an ammonia level of 299 with WBC count 12.0. Uri ne toxicology was positive for marijuana and benzodiazepines. The patient was transferred to the [facility] floor. Review of systems: Pertinent positives and negatives as discussed in HPI, a complete review of systems was performed and all other systems are negative. Physical examination: General: non toxic, no distress, appears at stated age, normal weight Derm: no unusual rashes/lesions, warm Head: atraumatic, normocephalic, symmetric Eyes: EOMI, no lid lag, anicteric sclera, pupils equal round reactive to light ENT: Nose and ears atraumatic Neck: No cervical lymphadenopathy, trachea midline, supple Mouth: no lip lesion, mucus membranes moist Cardiovascular: S1S2 reg, no murmur, positive dorsalis pedis pulse bilateral, no edema Lungs: CTA bilateral, no rhonchi, no rales, no accessory muscle use Abdominal: soft, nontender to palpation, no guarding Ext: Moving all extremities, no gross muscle atrophy, no contractures Neuro: No gross focal neuro deficits Psych: Lethargic, knows he is in the hospital, oriented to time and self Assessment/plan Altered mental status, suspected secondary to severe hyperammonemia -LFTs previously unremarkable -No clear etiology noted. May be due to Depakote toxicity. We will check levels -Lactulose per rectal ordered stat -Fall and aspiration precautions -Continuous one-to-one sitter -Obtain repeat liver function testing and coagulation studies DVT prophylaxis -Lovenox subcu The patient is admitted with an anticipated greater than 2 midnight stay for evaluation of altered mental status CODE STATUS: Full Code Anticipated discharge date: 05/[address]: [facility] Past Medical History Past Medical History: No Reported History Additional Past Medical History / Comment(s): Occasional "extra beat". History of Any Multi-Drug Resistant Organisms: None Reported Past Surgical History: No Surgical Hx Reported Additional Past Surgical History / Comment(s): LFA intentional cut with surgical repair. Past Anesthesia/Blood Transfusion Reactions: No Reported Reaction Past Psychological History: ADD/ADHD, Anxiety, Bipolar, Depression, PTSD Additional Psychological History / Comment(s): Pt states he is currently living alone. 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 Smoking Status: Current every day smoker Past Alcohol Use History: Occasional Additional Past Alcohol Use History / Comment(s): Pt started smoking in 2006. Past Drug Use History: Cocaine, Heroin, Marijuana, Methamphetamine, None Reported Additional Drug Use History / Comment(s): Pt states he uses heroin, crack, cocaine, marijuana and if he can get it, [facility]. He states he does not inject drugs - Past Family History Father Additional Family Medical History / Comment(s): Heart disease Mother Additional Family Medical History / Comment(s): Mother has psychological issues. Medications and Allergies Home Medications Medication Instructions Recorded Confirmed Type Divalproex ER [Depakote ER] 1,000 mg PO HS #60 tab.er.24h 06/17/19 Rx FLUoxetine HCL [PROzac] 20 mg PO DAILY #30 cap 06/17/19 Rx Nicotine 21Mg/24Hr Patch [Habitrol] 1 patch TRANSDERM DAILY #7 patch 06/17/19 Rx Unable To Assess [Unable to Assess] 01/08/21 01/08/21 History Allergies Allergy/AdvReac Type Severity Reaction Status Date / Time No Known Allergies Allergy Verified 04/25/22 00:35 Physical Exam Vitals: Vital Signs Temp Pulse Resp BP Pulse Ox 04/29/22 20:36 97.3 F L 78 16 130/76 99 Intake and Output 04/29/22 04/29/22 04/29/22 06:59 14:59 22:59 Other: Weight 71.8 kg Results CBC & Chem 7: 04/29/22 22:47
[2022-04-30 05:06] VITALS: RESP 18
[2022-04-30] MEDS ORDERED: NICOTINE 21MG/24HR PATCH TRANSDERM SCH (10:30)
[2022-04-30 11:20] VITALS: BP 130/91; PULSE 97; TEMP 98.1
--- NOTE | 2022-04-30 11:43 | P.PN ---
Subjective Admitted for lethargy elevated ammonia level in view of using valproic acid. He is doing better this morning. He is ambulating in the room. He still looks groggy, but following commands accurately. Objective - Vital Signs Vital signs: Vital Signs Temp 98.1 F 04/30/22 11:18 Pulse 97 04/30/22 11:18 Resp 18 04/30/22 11:18 BP 130/91 04/30/22 11:18 Pulse Ox 97 04/30/22 11:18 FiO2 Intake & Output 04/29/22 04/30/22 04/30/22 18:59 06:59 18:59 Intake Total 180 Balance 180 Weight 71.8 kg 71.8 kg Intake: Oral 180 Other: Voiding Method Urinal Toilet Diaper # Voids 1 # Bowel Movements 2 - Exam Awake alert oriented 3, no acute distress, Head and neck: Anicteric sclera, extraocular movements intact, no facial asymmetry, oropharyngeal mucosa is moist without any lesions, neck is supple without rigidity, no neck masses or neck vein distention Heart: Regular rhythm and rate, S1, S2; no murmurs rubs or gallops Lungs: Breath sounds present bilateral, no wheezing, rhonchi or crackles Abdomen: Bowel sounds present throughout, abdomen is soft, nontender, nondistended, no involuntary guarding, no hernias or organomegaly, no flank tenderness Extremities: No peripheral edema, no cyanosis, warm well perfused with palpable dorsalis pedis pulses bilateral and good capillary refill, without joint swelling or deformities Neurological: Cranial nerves intact, no nystagmus speech is fluent, still a little bit groggy but appropriately following commands and not overly lethargic; motor strength is 5 out of 5 upper and lower extremity, no neck rigidity, no asterixis, no tremor, DTRs are 1+ patellar, flexors blunted bilateral, gait is stable without difficulties - Labs CBC & Chem 7: 04/29/22 22:47 Labs: Abnormal Lab Results - Last 24 Hours (Table) 04/29/22 Range/Units 22:47 Glucose 103 H (74-99) mg/dL Assessment and Plan Assessment: #Acute toxic metabolic encephalopathy Due to hyperammonemia With normal liver enzymes Likely related to valproic acid Overall improving Continue lactulose, IV fluids Discussed with neurology, informed by neurology there no need for them to follow the patient as this seems to be related to high ammonia CT of the head without acute abnormality #Bipolar, depression Psychiatry evaluated, cleared for discharge home from their standpoint
[2022-04-30] MEDS ORDERED: LACTULOSE 20 GM/30 ML CUP PO SCH (11:45)
--- NOTE | 2022-04-30 14:06 | P.DS ---
Providers Date of admission: 04/29/22 20:08 Attending physician: Efren Singh MD Consults: 04/29/22 21:10 Consult Physician Stat Consulting Provider: Psychiatry - [facility] Psychiatry Consult Reason/Comments: suicide ideation Do you want consulting provider notified?: Already Contacted 04/30/22 09:54 Consult Physician Routine Consulting Provider: Stuart Rubio Consult Reason/Comments: Altered mental status Do you want consulting provider notified?: Yes Primary care physician: Stated None Hospital Course: This patient left AGAINST MEDICAL ADVICE. Patient was initially admitted from psych unit for G and found to have elevated ammonia level with normal liver enzymes. He has been on valproic acid. Valproic acid level was normal. The head was without acute abnormalities. He was given lactulose. Repeat ammonia was normal his mentation completely cleared up. We did recommend for patient to remain in the hospital for another 24 hours and monitor the progress however he left AGAINST MEDICAL ADVICE. Nurse notified me after this patient had left the hospital. 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 Plan - Discharge Summary New Discharge Prescriptions: No Action Divalproex ER [Depakote ER] 1,000 mg PO HS #60 tab.er.24h Nicotine 21Mg/24Hr Patch [Habitrol] 1 patch TRANSDERM DAILY #7 patch FLUoxetine HCL [PROzac] 20 mg PO DAILY #30 cap Unable To Assess [Unable to Assess] Discharge Medication List Divalproex ER [Depakote ER] 1,000 mg PO HS #60 tab.er.24h 06/17/19 [Rx] FLUoxetine HCL [PROzac] 20 mg PO DAILY #30 cap 06/17/19 [Rx] Nicotine 21Mg/24Hr Patch [Habitrol] 1 patch TRANSDERM DAILY #7 patch 06/17/19 [Rx] Unable To Assess [Unable to Assess] 01/08/21 [History] Discharge Disposition: Left Against Medical Advice
== END 2022-04-30 11:50 | disposition left against medical advice (07) | DRG 92 ==
LOC: 4SSUR 20:08 → 3SCARD 04-30 02:00
PROVIDERS: ADMIT Hospitalist; ATTEND Hospitalist
DX: G92.8 Other toxic encephalopathy (principal); E72.20 Disorder of urea cycle metabolism, unspecified; R45.851 Suicidal ideations; Z53.29 Procedure and treatment not carried out because of patient's decision for other reasons; T42.6X5A Adverse effect of other antiepileptic and sedative-hypnotic drugs, initial encounter; R74.01 Elevation of levels of liver transaminase levels; F17.200 Nicotine dependence, unspecified, uncomplicated; F31.9 Bipolar disorder, unspecified; F15.10 Other stimulant abuse, uncomplicated; F14.10 Cocaine abuse, uncomplicated; F11.10 Opioid abuse, uncomplicated; F43.10 Post-traumatic stress disorder, unspecified; F90.9 Attention-deficit hyperactivity disorder, unspecified type; Z79.899 Other long term (current) drug therapy; X58.XXXA Exposure to other specified factors, initial encounter
CPT/HCPCS: 70450; 80053; 80164; 82140; 85610; 85730

== ENCOUNTER 2023-03-29 03:11 | Observation (INO) | payer OTHER ==
[2023-03-29] MEDS ORDERED: SODIUM CHLORIDE 0.9% 1,000 ML IV ONE (03:13)
[2023-03-29 03:43] LABS: HCT 42.2 % (39.0-53.0); HGB 14.4 gm/dL (13.0-17.5); MCH 30.7 pg (25.0-35.0); MCV 90.1 fL (80.0-100.0); Mean Platelet Volume 8.1; Platelet Count 213 k/uL (150-450); RBC 4.68 m/uL (4.30-5.90); RDW 12.8 % (11.5-15.5)
[2023-03-29 03:46] LABS: Albumin 4.3 g/dL (3.5-5.0); Calcium 8.7 mg/dL (8.4-10.2); Potassium 3.7 mmol/L (3.5-5.1); Total Bilirubin 0.2 mg/dL (0.2-1.3); Total Protein 6.8 g/dL (6.3-8.2)
[2023-03-29 04:22] LABS: INR 0.9 (<1.2); Partial Thromboplastin Time 25.1 sec (22.0-30.0); Prothrombin Time 9.9 sec (9.0-12.0)
--- NOTE | 2023-03-29 04:56 | XR ---
EXAMINATION TYPE: XR chest 1V portable DATE OF EXAM: 03/29/2023 COMPARISON: NONE HISTORY: Fall injury with pain TECHNIQUE: Single AP portable frontal upright view of the chest is obtained. FINDINGS: Low lung volumes are present. There is no focal air space opacity, pleural effusion, or pn eumothorax seen. The cardiac silhouette size is upper limits of normal. The osseous structures are intact. IMPRESSION: No acute process.
--- NOTE | 2023-03-29 05:02 | CT ---
EXAMINATION TYPE: CT brain cspine wo con, CT facial bones wo con DATE OF EXAM: 03/29/2023 COMPARISON: NONE HISTORY: Fall injury with facial and neck pain CT DLP: 1400 mGycm. Automated Exposure Control for Dose Reduction was Utilized. TECHNIQUE: CT scan of the head , facial bones, and cervical spine are performed without contrast. FINDINGS: There is no acute intracranial hemorrhage, mass effect, or midline shift identified. The ventricles and sulci are within normal limits in size. Camejo-white matter differentiation is maintain ed. The calvarium is intact. Images of the facial bones show nasal bones to appear intact. Zygomatic arches are intact bilaterally . Orbital floors and dyer are intact bilaterally. Globes are intact bilaterally. Intraconal fat is p reserved. The mandible is intact. Temporomandibular joints are maintained. The maxilla is intact. The pterygoid plates are intact. There is some dependent fluid in the left maxillary sinus otherwise the paranasal sinuses are clear. Cervical spine is visualized in its entirety from C1 through upper thoracic levels and demonstrates l evoconvex scoliosis centered lower cervical spine without evidence of acute fracture or dislocation. Prevertebral soft tissue appears within normal limits. The C1-C2 articulation is within normal limi ts on the coronal images. Vertebral body heights and disc space heights are preserved. Spinal canal is maintained. Lung apices show no pneumothorax. IMPRESSION: 1. There is no acute fracture or dislocation evident in the cervical spine. 2. No acute intracranial hemorrhage or midline shift is seen. 3. No acute displaced facial bone fracture.
[2023-03-29 05:03] LABS: Eosinophils # (M) 0.21 k/uL (0-0.7); Lymphocytes # (M) 2.52 k/uL (1.0-4.8); Neutrophils # (M) 3.57 k/uL (1.3-7.7); Neutrophils % (M) 51 %; Nucleated Red Blood Cells 0 /100 WBC (0-0); RBC Morphology Normal; Total Cells Counted 100
[2023-03-29] MEDS ORDERED: NALOXONE 0.4 MG/ML 1 ML VIAL IV PRN (05:08)
[2023-03-29] MEDS ORDERED: ACETAMINOPHEN TAB 325 MG TAB PO PRN (05:08)
--- NOTE | 2023-03-29 05:09 | ED ---
General Adult HPI - General Chief complaint: Fall Stated complaint: Intoxication Source: EMS Mode of arrival: EMS - History of Present Illness Initial comments: 20-m[age] old male who is brought into the emergency department intoxicated. EMS was called to a house where the patient had been drinking and fell down some steps. Unsure how many steps the patient fell down. He does have bleeding from his bilateral nares. He also has a hematoma to the back of his left head. Patient is aggressive. Will answer that his name is Claude however has no ID on him. Patient otherwise is pushing and telling staff to "fuck off". He cannot provide any history at this time - Related Data Allergies Allergy/AdvReac Type Severity Reaction Status Date / Time Unable to Assess Allergy Verified 03/29/23 03:16 Review of Systems ROS Statement: Those systems with pertinent positive or pertinent negative responses have been documented in the HPI. ROS Other: All systems not noted in ROS Statement are negative. Past Medical History Past Medical History: Unable to Obtain History of Any Multi-Drug Resistant Organisms: Unobtainable Past Surgical History: Unable to Obtain Past Psychological History: Unable to Obtain Smoking Status: Unknown if ever smoked Past Alcohol Use History: Unable to Obtain Past Drug Use History: Unable to Obtain Course Vital Signs 03/29/23 03:16 Temperature 98.1 F Pulse Rate 70 Respiratory 14 Rate Blood Pressure 121/77 O2 Sat by Pulse 91 L Oximetry Medical Decision Making - Medical Decision Making Was pt. sent in by a medical professional or institution (EMELY Molina, PANEL ASSEMBLER, urgent care, hospital, or [place] health care facility...) When possible be specific @ -[No] Did you speak to anyone other than the patient for history (EMS, parent, family, police, friend...)? What history was obtained from this source @ -[No] Did you review nursing and triage notes (agree or disagree)? Why? @ -[I reviewed and agree with nursing and triage notes] Were old charts reviewed (outside hosp., previous admission, EMS record, old EKG, old radiological studies, urgent care reports/EKG's, [place] health care facility records)? Report findings @ -[No old charts were reviewed] Differential Diagnosis (chest pain, altered mental status, abdominal pain women, abdominal pain men, vaginal bleeding, weakness, fever, dyspnea, syncope, headache, dizziness, GI bleed, back pain, seizure, CVA, palpatations, mental health, musculoskeletal)? @ -[not applicable] EKG interpreted by me (3pts min.). @ -[As above] X-rays interpreted by me (1pt min.). @ -[None done] CT interpreted by me (1pt min.). @ -[None done] U/S interpreted by me (1pt. min.). @ -[None done] What testing was considered but not performed or refused? (CT, X-rays, U/S, labs)? Why? @ -[None] What meds were considered but not given or refused? Why? @ -[None] Did you discuss the management of the patient with other professionals (professionals i.e. DrLexis, PA, PANEL ASSEMBLER, lab, RT, psych nurse, social worker clinical, chaperone, teacher, debt recovery officer, pillowcase maker)? Give summary @ -[No] Was smoking cessation discussed for >3mins.? @ -[No] Was critical care preformed (if so, how long)? @ -[No] Were there social determinants of health that impacted care today? How? (Homelessness, low income, unemployed, alcoholism, drug addiction, transportation, low edu. Level, literacy, decrease access to med. care, skilled nursing, rehab)? @ -[No] Was there de-escalation of care discussed even if they declined (Discuss DNR or withdrawal of care, Hospice)? DNR status @ -[No] What co-morbidities impacted this encounter? (DM, HTN, Smoking, COPD, CAD, Cancer, CVA, ARF, Chemo, Hep., AIDS, mental health diagnosis, sleep apnea, morbid obesity)? @ -[None] Was patient admitted / discharged? Hospital course, mention meds given and route, prescriptions, significant lab abnormalities, going to OR and other pertinent info. @ -Upon arrival patient was placed into room 1. He is extremely aggressive with staff. He is completely undressed. Abrasion and hematoma noted to the left occiput. Attempted to put a c-collar on the patient however he is adamantly refusing. Patient is sent over for CT of his head and facial bones. No acute injuries noted. Laboratory studies demonstrate a serum alcohol of 356. Patient will be admitted for acute alcohol intoxication with reevaluation of injuries after the patient is sober Undiagnosed new problem with uncertain prognosis? @ -[No] Drug Therapy requiring intensive monitoring for toxicity (Heparin, Nitro, Insulin, Cardizem)? @ -[No] Were any procedures done? @ -[No] Diagnosis/symptom? @ -[default] Acute, or Chronic, or Acute on Chronic? @ -[default] Uncomplicated (without systemic symptoms) or Complicated (systemic symptoms)? @ -[default] Side effects of treatment? @ -[No] Exacerbation, Progression, or Severe Exacerbation? @ -[No] Poses a threat to life or bodily function? How? (Chest pain, [place], [place], pneumonia, PE, COPD, DKA, ARF, appy, cholecystitis, CVA, Diverticulitis, Homicidal, Suicidal, threat to staff... and all critical care pts) @ -[No] - Lab Data Result diagrams: 03/29/23 03:22 03/29/23 03:22 Lab Results 03/29/23 03/29/23 03/29/23 Range/Units 03:22 03:22 03:22 WBC 7.0 (3.8-10.6) k/uL RBC 4.68 (4.30-5.90) m/uL Hgb 14.4 (13.0-17.5) gm/dL Hct 42.2 (39.0-53.0) % MCV 90.1 (80.0-100.0) fL MCH 30.7 (25.0-35.0) pg MCHC 34.0 (31.0-37.0) g/dL RDW 12.8 (11.5-15.5) % Plt Count 213 (150-450) k/uL MPV 8.1 Neutrophils % (Manual) 51 % Lymphocytes % (Manual) 36 % Monocytes % (Manual) 10 % Eosinophils % (Manual) 3 % Neutrophils # (Manual) 3.57 (1.3-7.7) k/uL Lymphocytes # (Manual) 2.52 (1.0-4.8) k/uL Monocytes # (Manual) 0.70 (0-1.0) k/uL Eosinophils # (Manual) 0.21 (0-0.7) k/uL Nucleated RBCs 0 (0-0) /100 WBC Manual Slide Review Performed RBC Morphology Normal PT 9.9 (9.0-12.0) sec INR 0.9 (<1.2) APTT 25.1 (22.0-30.0) sec Sodium 143 (137-145) mmol/L Potassium 3.7 (3.5-5.1) mmol/L Chloride 105 (98-107) mmol/L Carbon Dioxide 24 (22-30) mmol/L Anion Gap 14 mmol/L BUN 15 (9-20) mg/dL Creatinine 1.07 (0.66-1.25) mg/dL Est GFR (CKD-EPI)AfAm 57 (>60 ml/min/1.73 sqM) Est GFR (CKD-EPI)NonAf 49 (>60 ml/min/1.73 sqM) Glucose 136 H (74-99) mg/dL Calcium 8.7 (8.4-10.2) mg/dL Total Bilirubin 0.2 (0.2-1.3) mg/dL AST 31 (17-59) U/L ALT 26 (4-49) U/L Alkaline Phosphatase 60 (38-126) U/L Total Protein 6.8 (6.3-8.2) g/dL Albumin 4.3 (3.5-5.0) g/dL Serum Alcohol 356 H* mg/dL Disposition Clinical Impression: Fall, Head injury, Epistaxis, Alcohol intoxication Disposition: ADMITTED IP TO THIS [facility] Condition: Undetermined Is patient prescribed a controlled substance at d/c from ED?: No Time of Disposition: 05:08 Decision to Admit Reason: Admit from EC Decision Date: 03/29/23 Decision Time: 05:08
[2023-03-29] MEDS: SODIUM CHLORIDE 0.9% 1,000 ML IV SCH ×2 (05:21→13:24)
[2023-03-29] MEDS ORDERED: LORazepam 2 MG/ML INJ IV PRN ×4 (07:38)
[2023-03-29] MEDS ORDERED: THIAMINE 100 MG/ML 2 ML VIAL IM STA (07:38)
[2023-03-29] MEDS ORDERED: HALOPERIDOL LACTATE 5 MG/ML 1 ML VIAL IM ONE (07:38)
[2023-03-29 08:11] LABS: Appearance,Urine Clear (Clear); Bilirubin,Urine Negative (Negative); Blood,Urine Negative (Negative); Color,Urine Light Yellow; Glucose,Urine (UA) Negative (Negative); Ketones,Urine Negative (Negative); Leukocyte Esterase,Urine Negative (Negative); Nitrite,Urine Negative (Negative); PH, Urine 5.5 (5.0-8.0); Protein,Urine Negative (Negative); Specific Gravity,Urine 1.009 (1.001-1.035); Urobilinogen,Urine <2.0 mg/dL (<2.0)
[2023-03-29 08:51] LABS: Amphetamine Screen,Urine Not Detected (NotDetected); Barbiturate Screen,Urine Not Detected (NotDetected); Benzodiazepines Screen,Urine Not Detected (NotDetected); Cocaine Screen,Urine Not Detected (NotDetected); Methadone Screen, Urine Not Detected (NotDetected); Opiate Screen,Urine Not Detected (NotDetected); Oxycodone Screen, Urine Not Detected (NotDetected); Phencyclidine Screen,Urine Not Detected (NotDetected); Tricyclic Antidepressant,Urine Not Detected (NotDetected); Urn Cannabinoid Scrn Detected (NotDetected)
[2023-03-29] MEDS ORDERED: FOLIC ACID 1 MG TAB PO SCH (09:00)
[2023-03-29] MEDS ORDERED: MULTIVITAMINS, THERA 1 EACH TAB PO SCH (09:00)
[2023-03-29] MEDS ORDERED: NICOTINE 21MG/24HR PATCH TRANSDERM SCH (09:00)
--- NOTE | 2023-03-29 12:55 | P.GSCN ---
History of Present Illness Consult date: 03/29/23 Reason for Consult: Acute alcohol intoxication, fall down a flight of stairs, blunt trauma History of present illness: Patient's a 32-year-old gentleman brought to [facility] in the digital producer hours of 03/29/2023 after reportedly falling down an unspecified number of steps. He's been unable to provide any history whatsoever even into early this afternoon at time of my assessment. It's unclear as to whether he may have suffered with loss of consciousness. At time of his arrival he had an alcohol level in the 350s, positive marijuana screen, remainder of drug screen was negative. A computed tomography scan of the head, cervical spine, oral maxillofacial, and chest x-ray were obtained showing no evidence of acute injury. He did have a degree of epistaxis on presentation, he denies any known medical problems, he tells me he is not on any sort of blood thinners. Since his arrival is been verbally abusive and confrontational with the staff to the point of spitting at and on his caregivers. He's been placed in hard restraints, he remains agitated and insists on leaving the hospital. Aside from his blood alcohol level on the cusp of levels that have been shown to be lethal his laboratory studies on admission were unimpressive. INR was normal range, white blood cell count hemoglobin and platelet count similarly normal range. Liver function studies within normal limits. Urinalysis negative. He's had a hemodynamically stable and afebrile appearance since admission to the medical floor. Review of Systems - Constitutional Reports as per HPI - EENT EENT Comment(s): Shock motions intact, pupils equal round reactive to light. Ears, nose, mouth and throat: Reports as per HPI, Reports epistaxis Past Medical History Past Medical History: No Reported History, Unable to Obtain History of Any Multi-Drug Resistant Organisms: Unobtainable Past Surgical History: Unable to Obtain Past Psychological History: Unable to Obtain Smoking Status: Unknown if ever smoked Past Alcohol Use History: Unable to Obtain Past Drug Use History: Unable to Obtain Medications and Allergies Allergies Allergy/AdvReac Type Severity Reaction Status Date / Time Unable to Assess Allergy Verified 03/29/23 03:16 Surgical - Exam Osteopathic Statement: *. No significant issues noted on an osteopathic structural exam other than those noted in the History and Physical/Consult. Vital Signs Temp Pulse Resp BP Pulse Ox 98.1 F 70 14 121/77 91 L 03/29/23 03:16 03/29/23 03:16 03/29/23 03:16 03/29/23 03:16 03/29/23 03:16 - General Agitated well developed - Eyes PERRL, normal ocular movement - ENT Epistaxis appears to have subsided. normal pinna, normal nares - Neck He displays a painless passive range of cervical motion on exam. no masses, no bruits, trachea midline - Respiratory normal expansion, normal respiratory effort - Cardiovascular Rhythm: regular - Abdomen Abdomen: soft, non tender - Neurologic GCS 15, agitated and combative with caregivers even after 8 hours of in-hospital observation. combative - Psychiatric He has no memory of events leading up to his hospitalization oriented to person, oriented to place Results - Labs 03/29/23 03:22 03/29/23 03:22 Abnormal Lab Results - Last 24 Hours (Table) 03/29/23 03/29/23 Range/Units 03:22 06:44 Glucose 136 H (74-99) mg/dL U Marijuana (THC) Screen Detected H (NotDetected) Serum Alcohol 356 H* mg/dL Diabetes panel 03/29/23 Range/Units 03:22 Sodium 143 (137-145) mmol/L Potassium 3.7 (3.5-5.1) mmol/L Chloride 105 (98-107) mmol/L Carbon Dioxide 24 (22-30) mmol/L BUN 15 (9-20) mg/dL Creatinine 1.07 (0.66-1.25) mg/dL Glucose 136 H (74-99) mg/dL Calcium 8.7 (8.4-10.2) mg/dL AST 31 (17-59) U/L ALT 26 (4-49) U/L Alkaline Phosphatase 60 (38-126) U/L Total Protein 6.8 (6.3-8.2) g/dL Albumin 4.3 (3.5-5.0) g/dL Calcium panel 03/29/23 Range/Units 03:22 Calcium 8.7 (8.4-10.2) mg/dL Albumin 4.3 (3.5-5.0) g/dL Pituitary panel 03/29/23 Range/Units 03:22 Sodium 143 (137-145) mmol/L Potassium 3.7 (3.5-5.1) mmol/L Chloride 105 (98-107) mmol/L Carbon Dioxide 24 (22-30) mmol/L BUN 15 (9-20) mg/dL Creatinine 1.07 (0.66-1.25) mg/dL Glucose 136 H (74-99) mg/dL Calcium 8.7 (8.4-10.2) mg/dL Adrenal panel 03/29/23 Range/Units 03:22 Sodium 143 (137-145) mmol/L Potassium 3.7 (3.5-5.1) mmol/L Chloride 105 (98-107) mmol/L Carbon Dioxide 24 (22-30) mmol/L BUN 15 (9-20) mg/dL Creatinine 1.07 (0.66-1.25) mg/dL Glucose 136 H (74-99) mg/dL Calcium 8.7 (8.4-10.2) mg/dL Total Bilirubin 0.2 (0.2-1.3) mg/dL AST 31 (17-59) U/L ALT 26 (4-49) U/L Alkaline Phosphatase 60 (38-126) U/L Total Protein 6.8 (6.3-8.2) g/dL Albumin 4.3 (3.5-5.0) g/dL - Imaging Chest x-ray: report reviewed, image reviewed Assessment and Plan Assessment: 32-year-old gentleman with acute alcohol intoxication with blood alcohol level just above 350, attendant marijuana use. Fall down an unspecified number of steps, unclear as to loss of consciousness. Patient denies history of oral anticoagulants, platelet count and INR were normal on initial presentation. Computed tomography scan of the head, cervical spine, oral maxillofacial, and chest x-ray showed no evidence of traumatic injury. No findings of other attendant physical injury on exam at bedside. Continues with agitated, abusive behavior toward staff. Would recommend excluding a delayed intracranial bleed. Alternatively his behavior could be his baseline. Plan: Recommend repeat noncontrasted CT to exclude brain bleed prior to discharge. Patient refuses. He still has a moderately impaired affect in appearance. Side to confirm that I don't see any indications for urgent surgical interventions. If his computed tomography scan shows no evidence of delayed bleed I would expect him to be okay for discharge from a surgical standpoint thereafter. He was advised that if he continues with his currently demonstrated drinking habits he is at risk of . Time with Patient: Greater than 30
[2023-03-29] MEDS ORDERED: HALOPERIDOL LACTATE 5 MG/ML 1 ML VIAL IM PRN (13:30)
[2023-03-29 14:29] VITALS: PULSE 86
--- NOTE | 2023-03-29 15:01 | CT ---
EXAMINATION TYPE: CT brain wo con DATE OF EXAM: 03/29/2023 COMPARISON: CT brain earlier today HISTORY: Follow up to head trauma earlier this morning. Ordering dr wants to rule out bleed before uli yip. CT DLP: 1102.10 mGycm. Automated Exposure Control for Dose Reduction was Utilized. TECHNIQUE: CT scan of the head is performed without contrast. FINDINGS: There is no acute intracranial hemorrhage, mass effect, or midline shift identified. The ventricles and sulci are within normal limits in size. Camejo-white matter differentiation is maintain ed. The calvarium is intact. Old fracture deformity medial wall left orbit axial image 17 is redemons trated. Some patchy opacification of anterior right ethmoid sinuses is redemonstrated. Tiny amount of dependent fluid left maxillary sinus is improved from earlier today. IMPRESSION: No acute intracranial hemorrhage or midline shift is seen.
--- NOTE | 2023-03-29 16:00 | HP ---
HISTORY AND PHYSICAL CHIEF COMPLAINT: Acute alcohol intoxication, falling down a flight of stairs, and blunt trauma. HISTORY OF PRESENT ILLNESS: This is a 32-year-old gentleman with a past medical history of EtOH, multiple medical problems. Apparently, he was admitted with alcohol intoxication. The patient was restless and psychotic and was given Haldol. Alcohol level was 356 and now, it is 137. The patient required restraints and the patient is being closely monitored at this time. Neurology psych evaluation has been sought at this time. Had a CT scan of the brain; final report is pending. Otherwise, a detailed history cannot be taken from the patient because the patient is sedated with Haldol at this time. PAST MEDICAL HISTORY: Reviewed. History of EtOH per chart. FAMILY HISTORY: Could not be taken. SOCIAL HISTORY: Could not be taken. REVIEW OF SYSTEMS: Could not be taken. HOME MEDICATIONS: Not available. PHYSICAL EXAMINATION: VITAL SIGNS: Pulse is 82, blood pressure 120/77, respiratory rate 14. HEENT: Conjunctivae normal. NECK: No jugular venous distention. CARDIOVASCULAR: S1, S2 muffled. RESPIRATORY: A few scattered rhonchi and crackles. ABDOMEN: Soft, nontender. LEGS: No edema, no swelling. NERVOUS SYSTEM: No focal deficits. SKIN: No ulcer, rash, bleeding. JOINTS: No active deforming arthropathy. LABORATORY DATA: CBC within normal limits. Glucose 136. ASSESSMENT: 1. Acute alcohol intoxication. 2. Possible acute early delirium tremens/psychosis. 3. History of EtOH. 4. Elevated blood glucose. 5. Positive THC. RECOMMENDATIONS: This is a 32-year-old gentleman, who presented with multiple complex medical issues. At this time, I recommend to continue with sedating the patient. The patient does not appear to have any capacity to decide regarding the further treatment, and at this time, I would recommend a web content & social media manager consult and nursing to get in touch with the family and also recommend Psychiatry and Neurology consultation also. The prognosis is guarded. See orders for details. Further recommendations to follow. MMODL / IJN: [id number] /
--- NOTE | 2023-03-29 17:56 | P.CN ---
Psychiatric Consult - . Consult date: 03/29/23 Consult:: 03/29/23 17:34 IDENTIFYING DATA: This patient is a 32-year-old employed single male REASON FOR REFERRAL: Psychiatry was consulted for alcohol use HISTORY OF PRESENT ILLNESS: The patient presented to the hospital after alcohol intoxication leading to a fall down stairs. At time of his arrival he had an alcohol level in the 350s, positive marijuana screen, remainder of urine drug screen was negative. A computed tomography scan of the head, cervical spine, oral maxillofacial, and chest x-ray were obtained showing no evidence of acute injury. Upon evaluation, patient is A& O 4. He states that he drank a pint prior to hospitalization. He states that he drinks twice a week generally 2 drinks but drank more than usual because he was about democrat with friends. He repeatedly states "I am not addicted". He reports never having attended rehab and not having any interest in participating in alcohol substance use treatment. He reports that his mood is "not depressed but not happy". He currently denies low mood and denies symptoms consistent with johnny. When discussing patient's behavior including agitation earlier this morning (leading to code strong being called), patient displays little insight into his own behavior. He states that he cannot recall much of what happened before this afternoon. However he recalls being in 4 point restraints and expresses his discontentment at such. He expresses understanding regarding his current medical condition. He states that he agreed to a computed tomography scan because the doctors wanted to rule out brain injury and brain bleed. CT brain without contrast did not show any acute intracranial hemorrhage. He understands that such an injury might have catastrophic consequences on his health. He says that because he does not drink high amounts often, he is not worried about this event reoccurring. He is quite fixated on discharge. At this time patient denies any suicidal or homicidal ideation, intent or plan. He is future oriented and would like to return back to work and spend time with his friends. Patient denies any auditory, visual hallucinations and denies any paranoia or delusions. PAST PSYCHIATRIC HISTORY: Patient reports having had numerous hospitalizations since childhood. He reports that he has a history of cutting. He states that he is not currently receiving any psychiatric medications and does not want to be on any. PAST MEDICAL HISTORY: Denies all ALLERGIES: NKDA CHEMICAL DEPENDENCY HISTORY: Reports drinking twice a week about 2 drinks. However, he states that he occasionally drinks 1 pint. He also reports smoking 2 joints a day. He endorses smoking a few cigarettes daily. He denies other substance use. FAMILY PSYCHIATRIC/SUBSTANCE USE HISTORY: Unknown to patient SOCIAL HISTORY: Patient reports having grown up in the foster care system only to have met his biological family when he was 17 years old. He states that he was never and does not have any children. 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 MENTAL STATUS EXAM: General Appearance: Patient appears to be stated age is alert, and superficially cooperative. Patient appears to have poor hygiene and grooming wearing hospital gown with fair eye contact. Behavior: Patient is calmly lying in bed without any agitated behavior. Speech: Patient's speech is fluent and nonpressured. Mood/Affect: Patient reports their mood is "not depressed but not happy", affect is congruent Suicidality/Homicidality: Patient denies having any suicidal or homicidal ideation intent or plan. Perceptions: Patient denies any visual hallucinations and denies any auditory hallucinations Though content/process: There is no evidence of any delusional thought content and thought process is linear and goal-directed. Memory and concentration: AOX4, grossly intact for the purposes of this session. Judgment and insight: Poor IMPRESSIONS: Alcohol use disorder, abuse Cannabis use disorder Nicotine dependence PLAN: -At this time patient DOES NOT meet criteria for inpatient psychiatric admission. -Patient DOES have decision making capacity at this time and is able to reason through and communicate/appreciate the risks, benefits and alternatives to treatment. -Agree with Haldol PRN for agitation -Discussed potential medications for medication assisted treatment of alcohol use but patient is currently not interested despite participating hesitantly in the discussion. -CIWA protocol and Librium per primary team with PRN Ativan for alcohol withdrawal. Continue to monitor vital signs. CIWA was 3 recently -Crime Scene Technician spoke with patient about substance abuse and the harmful effects on medical and mental health, patient verbally understood. -farmworker dairy to provide patient substance use treatment resources including AA/NA meetings in the community. -Communicated plan to patient's nurse -Psychiatry will sign off at this time -Please contact with any questions.
--- NOTE | 2023-03-29 19:22 | XR ---
EXAMINATION TYPE: XR thoracic spine 2V DATE OF EXAM: 03/29/2023 7:01 PM INDICATION: Patient age:Male; 32 years old; Reason for study: Thoracic pain; PHH. COMPARISON: No relevant priors TECHNIQUE: The thoracic spine was imaged in frontal, lateral, odontoid and bilateral oblique. FINDINGS: The osseous structures show normal alignment without evidence of an acute fracture. The intervertebra l disk spaces are minimally decreased. Pedicles are intact. Soft tissues are within normal limits. Visualized portions of the lung are normal in appearance. IMPRESSION: 1. No fracture or dislocation. 2. 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
[2023-03-29 23:31] VITALS: BP 124/71; RESP 16; TEMP 98.4
[2023-03-30] MEDS ORDERED: THIAMINE 100 MG TAB PO SCH (09:00)
--- NOTE | 2023-03-30 10:07 | DS ---
DISCHARGE SUMMARY FINAL DIAGNOSES: 1. Acute alcohol intoxication. 2. Possible acute early delirium tremens and psychosis. 3. History of EtOH. DISCHARGE DISPOSITION: The patient left the hospital against medical advice. HISTORY OF PRESENT ILLNESS: This is a 32-year-old gentleman, admitted with multiple medical problems including acute alcohol intoxication. However, the patient left against medical advice. The prognosis remains extremely guarded. Apparently, Psychiatry and Neurology saw the patient and determined competency as well. Please refer to Psych and Neurology consultations for detailed evaluation. The prognosis remains guarded. MMODL / IJN: [id number] /
== END 2023-03-29 19:32 | disposition left against medical advice (07) ==
LOC: EC 03:11 → EDBD 05:09 → MERGE 05:09 → 5NMEDONC 05:09
PROVIDERS: ADMIT Hospitalist; ATTEND Hospitalist
DX: S00.03XA Contusion of scalp, initial encounter (principal); F10.120 Alcohol abuse with intoxication, uncomplicated; M51.34 Other intervertebral disc degeneration, thoracic region; F17.210 Nicotine dependence, cigarettes, uncomplicated; F12.10 Cannabis abuse, uncomplicated; Z62.898 Other specified problems related to upbringing; Z78.1 Physical restraint status; Z91.52 Personal history of nonsuicidal self-harm; Z53.29 Procedure and treatment not carried out because of patient's decision for other reasons; W10.9XXA Fall (on) (from) unspecified stairs and steps, initial encounter; Y90.8 Blood alcohol level of 240 mg/100 ml or more
CPT/HCPCS: 96372; 96374; 99285; 36415; 80053; 83735; 85025; 85610; 85730; 81003; 80306; 72070; 71045; 72125; 70486; 70450; G0378; G0480; S4990; J2060; J1630; 80320

== ENCOUNTER 2023-10-19 03:38 | Emergency (ER) | payer OTHER ==
[2023-10-19 04:09] VITALS: TEMP 97.6
[2023-10-19] MEDS ORDERED: ORPHENADRINE 30 MG/ML 2 ML VIAL IM STA (04:48)
[2023-10-19] MEDS ORDERED: KETOROLAC 15 MG/ML 1 ML VIAL IM STA (04:48)
--- NOTE | 2023-10-19 05:29 | ED ---
Back Pain HPI - General Chief Complaint: Back Pain/Injury Stated Complaint: Back pain Time Seen by Provider: 10/19/23 04:24 Source: patient, EMS Limitations: no limitations - History of Present Illness Initial Comments: This patient is a 33-year-old man who presents to have evaluation for low back pain that does radiate to his buttock. The patient states that he noticed it after he had been walking yesterday. He states he ate he had been doing some twisting when he was moving things. The patient does not have any weakness of the legs, change in bladder or bowel function or saddle anesthesia. There was no trauma. MD Complaint: back pain Onset/Timin -: days(s) Similar Symptoms Previously: Yes Place: home Radiation: right leg Severity: moderate Quality: sharp, aching Consistency: constant Improves With: none Worsens With: sitting upright Context: turning/twisting Associated Symptoms: denies other symptoms - Related Data Previous Rx's Medication Instructions Recorded Divalproex ER [Depakote ER] 1,000 mg PO HS #60 tab.er.24h 06/17/19 FLUoxetine HCL [PROzac] 20 mg PO DAILY #30 cap 06/17/19 Nicotine 21Mg/24Hr Patch [Habitrol] 1 patch TRANSDERM DAILY #7 patch 06/17/19 Ibuprofen [Motrin] 600 mg PO Q8HR PRN #20 tab 10/19/23 methocarbamoL [Robaxin-750] 1,500 mg PO TID PRN #30 tab 10/19/23 Allergies Allergy/AdvReac Type Severity Reaction Status Date / Time No Known Allergies Allergy Verified 04/02/23 09:22 Review of Systems ROS Statement: Those systems with pertinent positive or pertinent negative responses have been documented in the HPI. ROS Other: All systems not noted in ROS Statement are negative. Constitutional: Denies: fever, chills, weakness Respiratory: Denies: cough, dyspnea Cardiovascular: Denies: chest pain, edema Gastrointestinal: Denies: abdominal pain, vomiting, diarrhea, constipation Genitourinary: Denies: dysuria, hematuria, testicular pain, testicular mass Musculoskeletal: Reports: as per HPI, back pain Skin: Denies: rash Neurological: Denies: headache, weakness, numbness, paresthesias Past Medical History Past Medical History: Unable to Obtain Additional Past Medical History / Comment(s): Occasional "extra beat". History of Any Multi-Drug Resistant Organisms: None Reported Past Surgical History: No Surgical Hx Reported, Unable to Obtain Additional Past Surgical History / Comment(s): LFA intentional cut with surgical repair. Past Anesthesia/Blood Transfusion Reactions: No Reported Reaction Past Psychological History: ADD/ADHD, Anxiety, Bipolar, Depression, PTSD Smoking Status: Current every day smoker, Vaper Past Alcohol Use History: Occasional Past Drug Use History: Cocaine, Heroin, Marijuana, Methamphetamine - Past Family History Father Additional Family Medical History / Comment(s): Heart disease Mother Additional Family Medical History / Comment(s): Mother has psychological issues. General Exam Limitations: no limitations General appearance: alert, in no apparent distress Head exam: Present: atraumatic, normocephalic Respiratory exam: Present: normal lung sounds bilaterally. Absent: respiratory distress, wheezes, rales, rhonchi, stridor Cardiovascular Exam: Present: regular rate, normal rhythm, normal heart sounds. Absent: systolic murmur, diastolic murmur, rubs, gallop GI/Abdominal exam: Present: soft. Absent: tenderness, guarding, pulsatile mass, hernia Extremities exam: Present: normal inspection, normal capillary refill. Absent: pedal edema, calf tenderness Back exam: Present: normal inspection, paraspinal tenderness. Absent: CVA tende rness (R), CVA tenderness (L), vertebral tenderness Neurological exam: Present: alert, reflexes normal. Absent: motor sensory deficit Skin exam: Present: warm, dry, intact, normal color. Absent: rash Course Vital Signs 10/19/23 10/19/23 04:05 06:07 Temperature 97.6 F Pulse Rate 71 73 Respiratory 18 16 Rate Blood Pressure 146/79 114/70 O2 Sat by Pulse 95 Oximetry Medical Decision Making - Medical Decision Making Was pt. sent in by a medical professional or institution (, PA, HAND TAPPER, urgent care, hospital, or halfway...) When possible be specific @ -[No] Did you speak to anyone other than the patient for history (EMS, parent, family, police, friend...)? What history was obtained from this source @ -[No] Did you review nursing and triage notes (agree or disagree)? Why? @ -[I reviewed and agree with nursing and triage notes] Were old charts reviewed (outside hosp., previous admission, EMS record, old EKG, old radiological studies, urgent care reports/EKG's, halfway records)? Report findings @ -[No old charts were reviewed] Differential Diagnosis (chest pain, altered mental status, abdominal pain women, abdominal pain men, vaginal bleeding, weakness, fever, dyspnea, syncope, headache, dizziness, GI bleed, back pain, seizure, CVA, palpatations, mental health, musculoskeletal)? @ -[Differential Back Pain: Strain, zoster, cauda equina syndrome, epidural abscess, vertebral osteomyelitis, discitis, fracture, subluxation, disc herniation, DJD, spinal stenosis, dissection, AAA, pancreatitis, peptic ulcer disease, pyelonephritis, kidney stone, this is not meant to be an all-inclusive list. EKG interpreted by me (3pts min.). @ -[As above] X-rays interpreted by me (1pt min.). @ -[None done] CT interpreted by me (1pt min.). @ -[None done] U/S interpreted by me (1pt. min.). @ -[None done] What testing was considered but not performed or refused? (CT, X-rays, U/S, labs)? Why? @ -[None] What meds were considered but not given or refused? Why? @ -[None] Did you discuss the management of the patient with other professionals (professionals i.e. , PA, HAND TAPPER, lab, RT, psych nurse, social media content specialist, inspecting engineer, teacher, special forces warrant officer, wrapper caser)? Give summary @ -[No] Was smoking cessation discussed for >3mins.? @ -[No] Was critical care preformed (if so, how long)? @ -[No] Were there social determinants of health that impacted care today? How? (Homelessness, low income, unemployed, alcoholism, drug addiction, transportation, low edu. Level, literacy, decrease access to med. care, long-term, rehab)? @ -[No] Was there de-escalation of care discussed even if they declined (Discuss DNR or withdrawal of care, Hospice)? DNR status @ -[No] What co-morbidities impacted this encounter? (DM, HTN, Smoking, COPD, CAD, Cancer, CVA, ARF, Chemo, Hep., AIDS, mental health diagnosis, sleep apnea, morbid obesity)? @ -[None] Was patient admitted / discharged? Hospital course, mention meds given and route, prescriptions, significant lab abnormalities, going to OR and other pertinent info. @ -[hospital course] Undiagnosed new problem with uncertain prognosis? @ -[No] Drug Therapy requiring intensive monitoring for toxicity (Heparin, Nitro, Insulin, Cardizem)? @ -[No] Were any procedures done? @ -[No] Diagnosis/symptom? @ -[Acute low back pain Acute, or Chronic, or Acute on Chronic? @ -[Acute Uncomplicated (without systemic symptoms) or Complicated (systemic symptoms)? @ -[Uncomplicated Side effects of treatment? @ -[No] Exacerbation, Progression, or Severe Exacerbation? @ -[No] Poses a threat to life or bodily function? How? (Chest pain, [place], [place], pneumonia, PE, COPD, DKA, ARF, appy, cholecystitis, CVA, Diverticulitis, Homicidal, Suicidal, threat to staff... and all critical care pts) @ -[No] Disposition Clinical Impression: Low back strain Disposition: HOME SELF-CARE Condition: Good Instructions (If sedation given, give patient instructions): Low Back Strain (ED) Prescriptions: Ibuprofen [Motrin] 600 mg PO Q8HR PRN #20 tab PRN Reason: Pain methocarbamoL [Robaxin-750] 1,500 mg PO TID PRN #30 tab PRN Reason: Pain Is patient prescribed a controlled substance at d/c from ED?: No Referrals: None,Stated [Primary Care Provider] - 1-2 days
[2023-10-19 06:13] VITALS: BP 114/70; PULSE 73; RESP 16
== END 2023-10-19 06:08 | disposition home or self-care (01) ==
LOC: EC 03:38
DX: S39.012A Strain of muscle, fascia and tendon of lower back, initial encounter (principal); F17.290 Nicotine dependence, other tobacco product, uncomplicated; F12.90 Cannabis use, unspecified, uncomplicated; F15.90 Other stimulant use, unspecified, uncomplicated; F14.90 Cocaine use, unspecified, uncomplicated; Z86.59 Personal history of other mental and behavioral disorders; X50.0XXA Overexertion from strenuous movement or load, initial encounter
CPT/HCPCS: 99284; 96372 ×2; J2360; J1885